=== PATIENT | female | born 1940 | race Caucasian/White ===

== ENCOUNTER 2017-03-08 16:50 | Inpatient (IN) | payer MEDICARE, BC ==
[~2017-03-08] VITALS: Ht 157.4 cm; Wt 79.0 kg
--- NOTE | ~2017-03-08 | PR ---
[place], [place] PROGRESS NOTE [id number] UNIT #: [id number] ROOM: 428 DOCTOR: DORITA AMAYA MD,KIP BIRTHDATE: [birth year] DOS: 03/11/2017 SUBJECTIVE: The patient was noted reduction in symptoms of shortness of breath, cough and stated that she has been feeling much better. Denies symptoms of chest pain or hemoptysis. OBJECTIVE: VITAL SIGNS: For the patient, which was recorded showed the temperature noted as normal. The respiratory rate of the patient recorded as 18, heart rate 80, blood pressure 167/83. The pulse oxygen saturation of the patient was noted at room air or rest of 100% saturation oxygen. HEENT: No acute change. NECK: Supple. CARDIOVASCULAR: S1, S2 is audible. LUNGS: Noted without any wheezing or crackles. ABDOMEN: Soft, nontender. IMPRESSION: 1. The patient with centrilobular nodule, collection in cluster noted in the lower lung. The abnormality noted much marked on the right than the left side. 2. Acute bilateral maxillary sinusitis. PLAN OF TREATMENT: The patient could be discharged home on oral antibiotic, was advised to be followed up in the office for further assessment of the current radiologic abnormalities. Abstinence from tobacco use was recommended. KIP KEVIN MD CM:PNTRANS [id number] KIP AMAYA MD 03/12/17 0047 interface
--- NOTE | ~2017-03-08 | CON ---
[place], [place] REPORT OF CONSULTATION [id number] UNIT #: [id number] ROOM: 428 DOCTOR: DORITA AMAYA MDKIP BIRTHDATE: [birth year] DOS: 03/10/2017 PULMONARY CONSULTATION EVALUATION AND MANAGEMENT REASON FOR CONSULTATION: To assess the patient's current pneumonia. The patient has abnormal respiratory symptoms. Consultation requested by the Hospitalist Services. HISTORY OF PRESENT ILLNESS: This is a 76-year-old white female who has been usually seen by the visiting physician from [place], [place] for wound care. She has developed increased coughing for the last few days that has not been improving. The cough was described to be dry. She was also noticed symptoms of shortness of breath. The symptoms have been present about a couple of weeks. The patient stated that she has taking her medication and not improving with those. The fever was also noted with associated current symptoms intermittently. The patient came into the hospital as she is not improving for further assessment in the Emergency Room. She has been assessed in the Emergency Room and was admitted to the hospital for further care. REVIEW OF SYSTEMS: CONSTITUTIONAL SYMPTOMS: Fatigue and tiredness noted without symptoms of fever or chills. EYES: Denies any burning, redness, or tenderness. EARS, NOSE, THROAT SYMPTOMS: Complaining of pressure in the sinus and some postnasal drainage. Denies any purulent nasal discharge. She denies symptoms of epistaxis or earache. CARDIOVASCULAR SYSTEM: Denies angina pain, edema, pain of the lower extremities. GASTROINTESTINAL SYMPTOMS: Denies dysphagia, nausea, vomiting, diarrhea, abdominal pain, hematemesis, melena, or hematochezia. GENITOURINARY SYMPTOMS: No dysuria, suprapubic pain, or hematuria. CENTRAL NERVOUS SYSTEM: No dizziness, headache, diplopia, syncopal episodes or tingling sensation of the extremity. MUSCULOSKELETAL: No acute joint pain, redness, or tenderness. SKIN: No lesions, rashes or itching. Remaining systems were reviewed. They were noted all negative. PAST MEDICAL HISTORY: 1. Noted with chronic osteoarthritis. 2. Essential hypertension. 3. Type 2 diabetes mellitus. 4. Hypercholesterolemia. SOCIAL HISTORY: The patient stated that she lives at home currently , has 2 children. Nonsmoker lifetime. Denies alcohol use or illicit drug use reported. FAMILY HISTORY: The patient's father as of 80+ years old, unknown complication. Mother is also , at the 80+ years old, unknown medical illnesses. [place], [place] REPORT OF CONSULTATION NAME: MELISSA MA UNIT #: [id number] ROOM: [facility] DOCTOR: DORITA AMAYA MD,KIP BIRTHDATE: [birth year] HOME MEDICATIONS: Noted use of Extra Strength Tylenol, Atacand, Plavix, metformin, and Zocor. DRUG ALLERGIES: REPORTED. 1. BETA BABITA. 2. IVP DYE. 3. AVAPRO. 4. LISINOPRIL. 5. MELOXICAM. 6. COMPAZINE. PHYSICAL EXAMINATION: GENERAL: This is a 76-year-old white Female who has been currently noted to be awake and alert without any acute distress at the time of the assessment. VITAL SIGNS: The patient's height was recorded by the nursing staff on current admission with height of 5 feet 2 inches, weight 174 pounds, BMI 31. The patient's temperature noted 102 degrees Fahrenheit, gradually afebrile status noted in the last 24 hours, the patient with afebrile, respiratory rate 18-20, heart rate 87-101, blood pressure is 172/82-126/99. The intake is 4400 mL over 4100 mL. The pulse oxygen saturation on room air 99% saturation recorded. HEENT: Head was atraumatic. Eyes nonicterus. NECK: Supple. Oral mucosa moist. Moderate decreased posterior pharyngeal space. CARDIOVASCULAR SYSTEM: S1, S2 is audible. LUNGS: The patient was noted with moderate decreased breath sounds. There was no wheezing or crackles heard. ABDOMEN: Soft, nontender with mild to moderate obesity. EXTREMITIES: The patient was noted without any edema, clubbing, or cyanosis. SKIN: Visible skin, no lesions or rashes. MUSCULOSKELETAL: Noted without acute deformities. CENTRAL NERVOUS SYSTEM: The patient was noted intact. Cranial nerves 2-12 intact as well. There were no focal deficits. LABORATORY DATA: The lactic acid on admission 03/08/2017 was 1.6, normal. CBC of the patient on 03/08/2017 normal on admission as well. PT/PTT on 03/08/2017 was normal. CMP 03/08/2017, glucose 133, BUN and creatinine were normal, remaining CMP normal. Influenza A and B, nasal washing antigen negative. CBC done yesterday, the patient remains still normal. Troponin normal yesterday as well. PT/PTT repeated yesterday normal. CMP yesterday, normal BUN and creatinine. Potassium minimally decreased 3.4. Urine culture formation, no bacterial growth, preliminary final culture results are pending. CBC remains normal this morning. BMP this morning, glucose 122. Remaining BMP normal. Blood culture 03/08/2017 showed no bacterial growth. RADIOLOGY DATA: Reviewed for this patient. CT scan of the head for the patient was completed on 03/08/2017 was noted without any acute intracranial abnormality. Bilateral maxillary sinuses were noted. The patient's airflow level greater on the right and the left side with bilateral mild ethmoid sinus disease as well, reported by the radiologist. A chest x-ray that was done for [place], [place] REPORT OF CONSULTATION NAME: [facility]: [id number] UNIT #: [id number] ROOM: [facility] BIR[facility]: [birth year] this patient on 03/08/2017 does not show any acute pulmonary modalities. CT scan of the head that was done yesterday without contrast for the patient was personally reviewed shows prominent hilar mediastinal lymph node noted, short dimension and right hilar lymph node 1.2 cm in the size. The patient was also noted with a small patchy infiltration what appeared to be radicular nodular opacity mostly in the lower lungs, greater in the right and the lower lobe with centrilobular nodule appearance. IMPRESSION: 1. The patient will be currently admitted to the hospital noted with acute bilateral maxillary sinusitis later on noted with current acute progressive respiratory symptom most likely due to aspiration current secretion resulting in acute pneumonia involving the lower lungs bilaterally. 2. The patient with a history of moderate obesity as well. 3. Prominent lymph node. The patient with right hilar area with lymphadenopathy, most likely due to current acute infection. Other differential of the current appearance of bilateral basilar reticular nodular opacities as well as centrilobular nodules with a differential diagnosis would be considered as Mycobacterium avium-intracellulare infection. There was no past history of tobacco use as well. PLAN OF TREATMENT: The patient seemed to be responding to current treatment should be continue current antibiotic for the typical and atypical coverage. Upon discharge for this patient, the patient would be advised about the repeat CT scan of chest to be done as an outpatient to document the resolution of current abnormalities. Sputum for acid fast bacillus will be ordered and bronchoscopy would be considered as an outpatient if the finding remains persistent. Antibiotic treatment for the current sinusitis should be given at least for 2 weeks. Certainly, the patient could be given oral antibiotic upon discharge to complete the current treatment. Other supportive therapy, plan of management and care for the patient is in progress. Additional treatment changes to be made for the patient based on the progression of the illness. Thank you for allowing me to participate in the care of this patient. KIP KEVIN MD CM:CONSTR:REPORT OF CONSULTATION 1607 03/11/17 0259 interface
[~2017-03-08 16:50] MED LIST: ATACAND32 MG PO; CIPRO500 MG PO; HYDROCHLOROTHIA25 MG PO; HYDROCODONE BIT1 T11 PO; HYDRODIURIL25 MG PO; MELOXICAM7.5 MG PO; METFORMIN1000 MG PO; PREDNISONE20 MG PO; VITAMIN D50000 I2 PO; [UNRECOGNIZED DRUG - OTHER] PO
[2017-03-08 17:00] VITALS: BP 184/92
[2017-03-08 17:57] VITALS: BP 210/140
[2017-03-08 18:15] LABS: BASO % 0.6 % (0.0-1.0); EOS # 0.1 10*3/uL (0.0-0.4); EOS % 2.1 % (1.0-4.0); LYMPH # 0.8 10*3/uL (1.3-4.4); LYMPH % 12.7 % (27.0-41.0); MEAN CELL VOLUME 91.1 fl (81.0-99.0); MEAN CORPUSCULAR HGB 28.9 pg (27.0-31.0); MEAN CORPUSCULAR HGB CONC 31.7 g/dl (33.0-37.0); MEAN PLATELET VOLUME 10.1 fl (9.6-12.3); MONO # 0.7 10*3/uL (0.1-1.0); MONO % 9.8 % (3.0-9.0); NEUT # 4.9 10*3/uL (2.3-7.9); NEUT % 74.5 % (47.0-73.0); PLATELET COUNT AUTOMATED 220 10*3/uL (130-400); RED CELL DISTRI WIDTH 13.5 % (0-14.5); WHITE BLOOD COUNT 6.6 10*3/uL (4.8-10.8)
[2017-03-08 18:28] LABS: ACT PARTIAL THROMBO TIME 27.7 SECONDS (20.8-31.5); INTERNATIONAL NORM RATIO 1.1 (2.0-3.5)
[2017-03-08 18:31] LABS: ALBUMIN 3.4 gm/dl (3.1-4.5); ALKALINE PHOSPHATASE 86 U/L (45-117); BUN 17 mg/dl (7-24); CHLORIDE 104 mmol/L (98-107); CREATININE 0.88 mg/dL (0.55-1.02); LIPASE 133 U/L (73-393); POTASSIUM 3.5 mmol/L (3.5-5.1); SGOT/AST 22 IU/L (3-35); SGPT/ALT 19 U/L (12-78); SODIUM 138 mmol/L (136-145); TOTAL PROTEIN 7.2 gm/dL (6.4-8.2)
[2017-03-08 18:32] LABS: TROPONIN I < 0.015 ng/ml (<0.045)
[2017-03-08 18:43] VITALS: BP 176/83
[2017-03-08] MEDS ORDERED: ZOCOR20 MG PO (18:49)
[2017-03-08] MEDS ORDERED: METFORMIN1000 MG PO (18:49)
[2017-03-08] MEDS ORDERED: PLAVIX75 M1 PO (18:49)
[2017-03-08] MEDS ORDERED: ACETAMINOPHEN500 M5 PO (18:51)
[2017-03-08 19:05] LABS: BILIRUBIN 1+ (NEGATIVE); BLOOD NEGATIVE (NEGATIVE); CLARITY CLEAR (CLEAR); COLOR YELLOW (YELLOW); GLUCOSE NEGATIVE (NEGATIVE); KETONE 3+ (NEGATIVE); LEUKO ESTERASE NEGATIVE (NEGATIVE); NITRITE NEGATIVE (NEGATIVE); SPECIFIC GRAVITY 1.025 (1.005-1.030); UROBILINOGEN 0.2 E.U./dl (0.2-1.0)
[2017-03-08 19:14] LABS: BACTERIA 2+; EPITHELIAL CELLS 0-2; MUCOUS 1+; RBC 0-2 rbc/hpf (0-2)
[2017-03-08 19:53] VITALS: BP 154/72
[2017-03-08 21:39] VITALS: BP 156/77
[2017-03-08 23:40] VITALS: BP 143/67
[2017-03-09 03:10] LABS: BASO % 0.7 % (0.0-1.0); EOS # 0.1 10*3/uL (0.0-0.4); HEMATOCRIT 37.7 % (37.0-47.0); HEMOGLOBIN 11.9 g/dl (12.0-16.0); LYMPH # 1.2 10*3/uL (1.3-4.4); LYMPH % 21.5 % (27.0-41.0); MEAN CELL VOLUME 91.5 fl (81.0-99.0); MEAN CORPUSCULAR HGB 28.9 pg (27.0-31.0); MEAN CORPUSCULAR HGB CONC 31.6 g/dl (33.0-37.0); MEAN PLATELET VOLUME 9.7 fl (9.6-12.3); MONO # 0.8 10*3/uL (0.1-1.0); MONO % 15.1 % (3.0-9.0); NEUT # 3.3 10*3/uL (2.3-7.9); NEUT % 60.5 % (47.0-73.0); PLATELET COUNT AUTOMATED 192 10*3/uL (130-400); RED BLOOD COUNT 4.12 10*6/uL (4.10-5.10); RED CELL DISTRI WIDTH 13.5 % (0-14.5); WHITE BLOOD COUNT 5.5 10*3/uL (4.8-10.8)
[2017-03-09 03:21] LABS: ACT PARTIAL THROMBO TIME 28.4 SECONDS (20.8-31.5); INTERNATIONAL NORM RATIO 1.1 (2.0-3.5)
[2017-03-09 03:25] LABS: ALKALINE PHOSPHATASE 73 U/L (45-117); BUN 16 mg/dl (7-24); CHLORIDE 106 mmol/L (98-107); CHOLESTEROL 111 mg/dL (<200); HDL CHOLESTEROL 38 mg/dl (40-60); LDL CHOLESTEROL 47 mg/dL (9-159); PHOSPHOROUS 2.4 mg/dL (2.5-4.9); POTASSIUM 3.4 mmol/L (3.5-5.1); SGOT/AST 16 IU/L (3-35); SGPT/ALT 16 U/L (12-78); SODIUM 141 mmol/L (136-145); TOTAL PROTEIN 6.2 gm/dL (6.4-8.2); TRIGLYCERIDES 132 mg/dl (<150); VLDL CHOLESTEROL 26 mg/dL (6-40)
[2017-03-09 03:26] LABS: FREE T4 1.24 ng/dl (0.76-1.46)
[2017-03-09 07:27] LABS: VITAMIN D, 25-HYDROXY 17.9 ng/mL (30-100)
[2017-03-09 08:00] VITALS: BP 164/64
[2017-03-09 12:00] VITALS: BP 146/99
[2017-03-09 16:00] VITALS: BP 126/99
[2017-03-09 20:00] VITALS: BP 120/71
[2017-03-10] VITALS (9 sets, daily range): BP systolic 138–210; BP diastolic 63–90
[2017-03-10 07:50] LABS: BASO % 0.8 % (0.0-1.0); EOS # 0.2 10*3/uL (0.0-0.4); EOS % 4.6 % (1.0-4.0); HEMATOCRIT 38.5 % (37.0-47.0); HEMOGLOBIN 12.4 g/dl (12.0-16.0); LYMPH # 1.1 10*3/uL (1.3-4.4); LYMPH % 22.8 % (27.0-41.0); MEAN CORPUSCULAR HGB 29.3 pg (27.0-31.0); MEAN CORPUSCULAR HGB CONC 32.2 g/dl (33.0-37.0); MEAN PLATELET VOLUME 9.7 fl (9.6-12.3); MONO # 0.6 10*3/uL (0.1-1.0); MONO % 12.8 % (3.0-9.0); NEUT # 2.8 10*3/uL (2.3-7.9); NEUT % 58.6 % (47.0-73.0); PLATELET COUNT AUTOMATED 199 10*3/uL (130-400); RED BLOOD COUNT 4.23 10*6/uL (4.10-5.10); RED CELL DISTRI WIDTH 13.7 % (0-14.5); WHITE BLOOD COUNT 4.8 10*3/uL (4.8-10.8)
[2017-03-10 08:14] LABS: BUN 9 mg/dl (7-24); CHLORIDE 107 mmol/L (98-107); CREATININE 0.59 mg/dL (0.55-1.02); PHOSPHOROUS 2.1 mg/dL (2.5-4.9); POTASSIUM 3.6 mmol/L (3.5-5.1); SODIUM 142 mmol/L (136-145)
[2017-03-11] VITALS: BP 147/73
[2017-03-11 08:00] VITALS: BP 167/83
[2017-03-11 12:00] VITALS: BP 153/102
[2017-03-11] MEDS ORDERED: VITAMIN D-32000 UNI1 PO (13:13)
[2017-03-11] MEDS ORDERED: HYDR12.5C PO (13:13)
[2017-03-11] MEDS ORDERED: VIBRA-TAB100 MG PO (13:13)
[2017-03-11] MEDS ORDERED: BENZONATATE100 M1 PO (13:13)
[2017-03-12 16:07] LABS: LEGIONELLA URINARY ANTIGEN Negative (Negative)
== END 2017-03-11 16:03 | disposition home or self-care (01) | DRG 871 ==
LOC: ED 16:50 → EDHOLD 22:17 → 4E 22:17
PROVIDERS: Emergency Medicine; Hospitalist; Internal Medicine Nephrology
DX: A41.9 Sepsis, unspecified organism (principal); J18.9 Pneumonia, unspecified organism; E44.0 Moderate protein-calorie malnutrition; E11.65 Type 2 diabetes mellitus with hyperglycemia; I11.0 Hypertensive heart disease with heart failure; E67.8 Other specified hyperalimentation; I50.32 Chronic diastolic (congestive) heart failure; D64.9 Anemia, unspecified; J01.00 Acute maxillary sinusitis, unspecified; J32.0 Chronic maxillary sinusitis; I16.0 Hypertensive urgency; D72.810 Lymphocytopenia; D72.821 Monocytosis (symptomatic); E87.6 Hypokalemia; E55.9 Vitamin D deficiency, unspecified; E66.09 Other obesity due to excess calories; R26.2 Difficulty in walking, not elsewhere classified; E78.5 Hyperlipidemia, unspecified; M54.5 Low back pain; G89.29 Other chronic pain; M19.90 Unspecified osteoarthritis, unspecified site; R91.1 Solitary pulmonary nodule; E78.00 Pure hypercholesterolemia, unspecified; Z86.73 Personal history of transient ischemic attack (TIA), and cerebral infarction without residual deficits; Z88.8 Allergy status to other drugs, medicaments and biological substances; Z91.041 Radiographic dye allergy status; Z79.899 Other long term (current) drug therapy; Z68.31 Body mass index [BMI] 31.0-31.9, adult; Z72.0 Tobacco use; Z79.84 Long term (current) use of oral hypoglycemic drugs

== ENCOUNTER 2017-03-28 12:13 | Emergency (ER) | payer MEDICARE, BC ==
[~2017-03-28] VITALS: Wt 68.0 kg
[~2017-03-28 12:13] MED LIST changes: +ACETAMINOPHEN500 M5 PO; +BENZONATATE100 M1 PO; +HYDR12.5C PO; +PLAVIX75 M1 PO; +VIBRA-TAB100 MG PO; +VITAMIN D-32000 UNI1 PO; +ZOCOR20 MG PO
[2017-03-28 13:05] LABS: BASO # 0.1 10*3/uL (0.0-0.1); BASO % 0.6 % (0.0-1.0); EOS # 0.1 10*3/uL (0.0-0.4); EOS % 1.1 % (1.0-4.0); HEMATOCRIT 43.7 % (37.0-47.0); HEMOGLOBIN 13.8 g/dl (12.0-16.0); LYMPH # 1.5 10*3/uL (1.3-4.4); LYMPH % 19.2 % (27.0-41.0); MEAN CELL VOLUME 90.9 fl (81.0-99.0); MEAN CORPUSCULAR HGB 28.7 pg (27.0-31.0); MEAN CORPUSCULAR HGB CONC 31.6 g/dl (33.0-37.0); MEAN PLATELET VOLUME 10.6 fl (9.6-12.3); MONO # 0.4 10*3/uL (0.1-1.0); MONO % 5.6 % (3.0-9.0); NEUT # 5.8 10*3/uL (2.3-7.9); NEUT % 73.2 % (47.0-73.0); PLATELET COUNT AUTOMATED 235 10*3/uL (130-400); RED BLOOD COUNT 4.81 10*6/uL (4.10-5.10); RED CELL DISTRI WIDTH 13.8 % (0-14.5); WHITE BLOOD COUNT 7.9 10*3/uL (4.8-10.8)
[2017-03-28 13:11] LABS: BILIRUBIN 1+ (NEGATIVE); BLOOD NEGATIVE (NEGATIVE); CLARITY CLOUDY (CLEAR); COLOR YELLOW (YELLOW); GLUCOSE NEGATIVE (NEGATIVE); KETONE 1+ (NEGATIVE); LEUKO ESTERASE NEGATIVE (NEGATIVE); NITRITE NEGATIVE (NEGATIVE); PH 5.5 (5.0-9.0); SPECIFIC GRAVITY >= 1.030 (1.005-1.030); UROBILINOGEN 0.2 E.U./dl (0.2-1.0)
[2017-03-28 13:14] LABS: ACT PARTIAL THROMBO TIME 27.1 SECONDS (20.8-31.5); INTERNATIONAL NORM RATIO 1.1 (2.0-3.5)
[2017-03-28 13:20] LABS: ALBUMIN 3.6 gm/dl (3.1-4.5); ALKALINE PHOSPHATASE 85 U/L (45-117); BUN 14 mg/dl (7-24); CHLORIDE 107 mmol/L (98-107); CREATININE 0.95 mg/dL (0.55-1.02); LIPASE 143 U/L (73-393); POTASSIUM 3.5 mmol/L (3.5-5.1); SGOT/AST 17 IU/L (3-35); SGPT/ALT 15 U/L (12-78); SODIUM 142 mmol/L (136-145); TOTAL PROTEIN 6.9 gm/dL (6.4-8.2)
[2017-03-28 13:23] LABS: HYALINE CAST 0-2; MUCOUS 1+; WBC 0-2 wbc/hpf (0-5)
[2017-03-28 13:23] LABS: TROPONIN I < 0.015 ng/ml (<0.045)
[2017-03-28 18:19] VITALS: BP 130/80
== END 2017-03-28 15:42 | disposition short-term general hospital (02) ==
LOC: ED 12:13
PROVIDERS: Emergency Medicine
DX: I16.0 Hypertensive urgency (principal); R55 Syncope and collapse; I11.0 Hypertensive heart disease with heart failure; I50.9 Heart failure, unspecified; E78.5 Hyperlipidemia, unspecified; R73.9 Hyperglycemia, unspecified; E87.6 Hypokalemia; Z91.041 Radiographic dye allergy status; Z88.8 Allergy status to other drugs, medicaments and biological substances; Z79.84 Long term (current) use of oral hypoglycemic drugs; Z79.899 Other long term (current) drug therapy

== ENCOUNTER 2017-06-02 22:57 | Inpatient (IN) | payer MEDICARE, BC ==
[~2017-06-02] VITALS: Ht 155 cm; Wt 78.0 kg
--- NOTE | ~2017-06-02 | PR ---
[place], [place] PROGRESS NOTE NAME: MELISSA MA [facility] #: [id number] UNIT #: [id number] ROOM: 420 DOCTOR: ROMIE CHEEK MD BIRTHDATE: [birth year] DOS: 06/04/2017 CARDIOLOGY PROGRESS NOTE SUBJECTIVE: The patient was seen today at her bedside in the intensive care unit. No family members were available. The patient is quite agitated at this time. She states that the nursing staff tried to get her out of bed to go to the bedside commode and she became very lightheaded and almost passed out. She became very agitated after that. She stated that she was afraid that she was going to have another stroke. Records were obtained from [facility] where she was hospitalized on 03/28/2017. She was transferred for evaluation of possible stroke. At the [facility] she was evaluated mostly for syncope. She stated that loss of consciousness was her biggest complaint. The records reference a CAT scan, which showed no acute findings. An echocardiogram was done and showed normal left ventricular systolic function with stage II diastolic dysfunction. There is no mention of a heart catheterization, aneurysm or stent, even though the patient states that she had 2 stents placed, was told that she had an aneurysm and was treated for a stroke. PHYSICAL EXAMINATION: VITAL SIGNS: Today her pulse is between 75 and 100 and regular, blood pressure is 151/91. She is afebrile. NECK: Supple. She has no jugular distention. Carotids are full. LUNGS: Respirations are unlabored. Her chest is clear. She has decreased breath sounds at the bases. HEART: Has a regular rhythm with an S4 gallop. ABDOMEN: Benign. EXTREMITIES: Showed trace edema. LABORATORY DATA: She did have an echocardiogram done yesterday. I reviewed the images and they showed normal left ventricular size with mild concentric left ventricular hypertrophy, ejection fraction was between 65 and 70% and she did have a stage 1 diastolic dysfunction pattern. She had aortic sclerosis, but no stenosis or significant insufficiency. She had minimal mitral insufficiency and no stenosis. Right ventricular systolic pressures were normal. 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 The IVC was normal in size. IMPRESSION: 1. Hypertensive urgency. 2. Abnormal electrocardiogram and elevated troponins consistent with acute non-ST segment elevation myocardial infarction. 3. Neurologic symptoms suggestive of recent stroke or transient ischemic attack. 4. Essential hypertension. 5. Type 2 diabetes. 6. Hyperlipidemia. 7. History of stroke or transient ischemic attack. However, records are not [place], [place] PROGRESS NOTE [facility]: [id number] UNIT #: [id number] ROOM: 420 DOCTOR: ROMIE CHEEK MD BIRTHDATE: [birth year] available to document this very well. PLAN: We will continue to adjust her medications to better control her blood pressure. My goal would be to have her blood pressure about 150 systolic while we are evaluating her for possible acute cerebral insufficiency. Since her chart still indicates an allergy to BETA BLOCKERS, we will withhold them, but we will continue angiotensin receptor blockers, hydralazine and diuretics. I thank the hospitalist physicians for asking our advice regarding her care. ROMIE CHEEK MD CM:PNTRANS [id number] ROMIE CHEEK MD 06/06/17 0823 interface
--- NOTE | ~2017-06-02 | PR ---
[place], [place] PROGRESS NOTE NAME: MELISSA MA [facility] #: [id number] UNIT #: [id number] ROOM: [facility] DOCTOR: ROMIE CHEEK MD BIRTHDATE: [birth year] DOS: 06/05/2017 SUBJECTIVE: The patient was seen at her bedside in the intensive care unit today 06/05/2017 for followup of her recent hypertensive emergency and non-ST segment elevation myocardial infarction. The patient denies any chest pain. She is resting comfortably in bed. She states that she was unable to sleep last night, but was able to nap this morning. She states she is breathing easily. PHYSICAL EXAMINATION: VITAL SIGNS: Her pulse is 77 and regular, blood pressure is 123/64. She is afebrile. She weighs 78.0 kilograms, and has a body mass index 32.5. NECK: Supple. She has no jugular distention. Carotids are full. LUNGS: Respirations are unlabored. Her chest is clear anteriorly and laterally. HEART: Has a regular rhythm with an S4 gallop. ABDOMEN: Benign. EXTREMITIES: Showed no edema. The patient's echocardiogram did show normal left ventricular size and segmental wall motion with mild concentric left ventricular hypertrophy, ejection fraction was 65-70% with stage I relaxation abnormalities. There was aortic sclerosis, but no stenosis. There was marked mitral annular calcification, but no significant mitral stenosis or insufficiency. She does have dilation of the ascending thoracic aorta at 4.0 cm. IMPRESSION: 1. Hypertensive emergency. 2. Acute non-ST elevation myocardial infarction. 3. Possible recent stroke or transient ischemic attack. 4. Essential hypertension. 5. Type 2 diabetes mellitus. 6. Hyperlipidemia. 7. Ascending thoracic aortic dilation. PLAN: I would like to treat her with beta blockers, but this is listed as an allergy. The patient cannot tell me if or how she was allergic to beta blockers and her was unaware as well. For now, her blood pressure is under control and we will continue her current medications. Since she had a recent episode of non-ST elevation VA, we will treat her with dual antiplatelet therapy and statins. I think we can stop her heparin drip at this point and place her on DVT prophylaxis, doses of Lovenox. She can be moved out of the intensive care unit. As she becomes more ambulatory, we can consider a risk stratifying stress test, but as long as she is feeling well and her vital signs are controlled, I probably would just treat her medically at this point. I thank the hospitalist physicians for asking our advice regarding her care. [place], [place] PROGRESS NOTE NAME: MELISSA MA UNIT #: [id number] ROOM: [facility] DOCTOR: ROMIE CHEEK MD BIRTHDATE: [birth year] ROMIE CHEEK MD CM:PNTRANS [id number] ROMIE CHEEK MD 06/05/17 1043 interface
--- NOTE | ~2017-06-02 | CON ---
[place], [place] REPORT OF CONSULTATION NAME: MELISSA MA UNIT #: [id number] ROOM: 420 DOCTOR: PATRIA COBURN MD BIRTHDATE: [birth year] DOS: 06/06/2017 CHIEF COMPLAINT: "I just want to get my 2 canes and walk on out of here." HISTORY OF PRESENT ILLNESS: This is a 76-year-old white female who was admitted to the medical floor at [facility] due to intermittent dizziness. The patient reports that as long as she is lying flat, she is okay. When she starts moving about, she does notice that the dizziness gets worse. From a psychiatric standpoint, she denies any issues. She states that she is not depressed and states "I have a very good life and I just want to go back to it." She reports that at time she does have trouble sleeping that has been more so now that she is in the hospital, but at home, she endorses she sleeps through the night. She does not experience any symptoms of anergia, anhedonia, hopeless, helpless feelings. She denies suicidal thoughts, homicidal thoughts. She likewise denies anxiety and states that her only anxiety is because she wants to go home, otherwise she feels very comfortable. She notes no arelis or hypomania and also denies any psychotic symptomatology. MENTAL STATUS: She is alert and oriented to person, place and time. Mood does seem to be euthymic. Affect is appropriate. She was able to engage readily in conversation with me and even joke with me. There was no symptom suggestive of hypomania arelis or psychosis. Memory for the most part is fully intact. DIAGNOSES: Adjustment disorder with depressed mood. PLAN: At this point, I see no reason for any medication intervention. At this point when you feel that she is ready to go medically, I would say that she does not even need psychiatric followup. PATRIA COBURN MD CM:CONSTR:REPORT OF CONSULTATION 0941 06/06/17 0956 interface
--- NOTE | ~2017-06-02 | PR ---
[place], [place] PROGRESS NOTE NAME: MELISSA MA UNIT #: [id number] ROOM: 420 DOCTOR: ROMIE CHEEK MD BIRTHDATE: [birth year] DOS: 06/06/2017 SUBJECTIVE: The patient was seen at her bedside today, 06/06/2017, for followup of her recent hypertensive emergency and non-ST segment elevation myocardial infarction. The patient is very agitated at this time. She is demanding discharge. She told me that she did not want to answer any questions and did not want to talk to me. I explained to her that we did not feel that it was safe for her to be discharged since she has not been out of bed and when sat up she complains of unsteadiness. She states that she would do fine at home. OBJECTIVE: GENERAL: On exam, she is lying in bed and appears comfortable. As noted, she is quite agitated. VITAL SIGNS: Pulse is 100 and regular, blood pressure is 117/70. She is afebrile. She weighs 78.0 kilograms and his body mass index of 32.5. NECK: Supple. She has no jugular distention. Carotids are full. LUNGS: Respirations are unlabored. EXTREMITIES: Showed no edema. IMPRESSION: 1. Hypertensive emergency. 2. Acute non-ST elevation myocardial infarction. 3. Probable recent stroke or transient ischemic attack. 4. Essential hypertension. 5. Type 2 diabetes mellitus. 6. Hyperlipidemia. 7. Ascending thoracic aortic dilation. PLAN: The patient does not appear to me to be safe for discharge. I think that her blood pressure will require further control. I also think that she should have physical therapy to ensure that she is stable out of bed. Currently, she is refusing physical therapy, etc. From a cardiac perspective, it might be appropriate to have her do a stress test for risk stratification, but I do not think that she is willing to consider any further evaluation. We will continue to see her as needed and I thank the hospitalist physicians for asking our advice regarding her care. In the meantime, however, we will increase her angiotensin receptor venkat and add a diuretic for better control of her blood pressure. [place], [place] PROGRESS NOTE NAME: MELISSA MA [facility] #: [id number] UNIT #: [id number] ROOM: 420 DOCTOR: ROMIE CHEEK MD BIRTHDATE: [birth year] ROMIE CHEEK MD CM:PNTRANS [id number] ROMIE CHEEK MD 06/06/17 174 interface
--- NOTE | ~2017-06-02 | CON ---
[place], [place] REPORT OF CONSULTATION NAME: [id number] UN[facility] #: [id number] ROOM: [facility] DOCTOR: ROMIE CHEEK MD BIRTHDATE: [birth year] DOS: 06/03/2017 REASON FOR CONSULTATION: Elevated blood pressure, elevated troponin, and EKG changes consistent with ischemia. HISTORY OF PRESENT ILLNESS: The patient is a 76-year-old woman who has multiple medical problems. She is a difficult historian, but she does state that she has a long history of hypertension and gait difficulties. She states that at home, she walks with two canes. She believes that she was reasonably well until February of this year when she started having problems with left arm pain and weakness. She states that she was seen at [facility] and then sent to [facility]. Details of that are not yet available. She states that while she was at [facility] she received stents in her heart and was told that she had an aneurysm in her head. She was subsequently admitted to the [facility] with sinusitis and hypertensive urgency. Medications were adjusted and she felt better. She states that yesterday when she tried to get up, she felt dizzy and could not move her left side. This improved, but last evening, she could not talk, walk or move, so her family brought her to the emergency room. In the emergency room, she was hypertensive. Her initial troponin was normal, but subsequent troponin levels have risen in a pattern suggesting acute myocardial injury. Coincidental with this, she did have flat ST segment depressions in the lateral leads, which has subsequently improved. She denies chest pain throughout. Currently, her blood pressure remains elevated, but is better than it was on admission. She is breathing easily and moving all of her extremities. PAST MEDICAL HISTORY: Includes: 1. Hypertension. 2. Chronic diastolic heart failure. 3. Chronic kidney disease. 4. History of stroke or TIA (not well documented at present). 5. Hyperlipidemia. 6. Obesity. 7. Type 2 diabetes mellitus. 8. The chart indicates that she has had an adrenal adenoma found on a CT of her pelvis in January 2013. 9. The patient states that she did have an aneurysm in her head, diagnosed at the [facility] earlier this year. Records are pending. 10. History of probable catheterization and stent earlier this year, records pending. MEDICATIONS: Prior to admission acetaminophen, benzonatate, candesartan 32 mg daily, cholecalciferol 2000 units daily, clopidogrel 75 mg daily, hydrochlorothiazide 12.5 mg daily, metformin 1000 mg daily and simvastatin 20 mg at bedtime. ALLERGIES: The patient is very unclear on her allergies. She states that the only thing she is sure she is allergic to is ATACAND; however, she is on candesartan at this time and apparently tolerating it well. The chart indicates [place], [place] REPORT OF CONSULTATION NAME: MELISSA MA UNIT #: [id number] ROOM: [facility] DOCTOR: ROMIE CHEEK MD BIRTHDATE: [birth year] that she is allergic to BETA BLOCKERS, LISINOPRIL, MELOXICAM, IRBESARTAN, PROCHLORPERAZINE and IVP DYE. The patient cannot confirm any of these and the details of the allergies are not currently available. FAMILY HISTORY: According to the records, the patient's father in his 80s from unknown causes. Her mother also in her 80s of unknown causes. REVIEW OF SYSTEMS: The patient denies diplopia. She did state that she could not see earlier yesterday for reasons that are not clear. She stated that she had left-sided weakness yesterday. She states that her vision got dim. She denied nausea or vomiting. She denied chest pain. She has had some breathlessness over the last several months. She denied hemoptysis or hematemesis. She states that she feels like she has to move her bowels, but she denies blood in her stools or urine. She denies fevers or chills. She denies dysuria. She states that her legs have been swollen. The remainder of her review of systems is negative except as noted above. SOCIAL HISTORY: The patient is and lives with her . She denies use of tobacco or alcohol and denies any illicit drugs. PHYSICAL EXAMINATION: GENERAL: The patient is an elderly white female who looks older than her stated age. VITAL SIGNS: Pulse is 82 and regular, blood pressure is 162/84. She is afebrile. HEENT: Normocephalic and atraumatic. Extraocular muscles are intact. Sclerae are clear. Pupils are equal, round and react to light. The oral mucosa is moist. Tongue is midline. NECK: Supple. She has no jugular distention. Carotids are full and I heard no bruits. She had no neck or supraclavicular masses and no thyromegaly. Respirations were unlabored. CHEST: Clear to auscultation and percussion. She had no presacral edema. CARDIOVASCULAR: Her heart had a regular rhythm. She had a fourth heart sound, but no third heart sound or murmur. The PMI was not displaced. There is no precordial heave, lift or thrill. ABDOMEN: Soft and normally active. I heard no bruits and there was no obvious mass. EXTREMITIES: Showed trace edema. Her ankles are wrapped. Pedal pulses are palpable in the feet. LABORATORY DATA: I reviewed her chest x-ray. It shows a normal cardiac silhouette. There are no infiltrates or evidence for heart failure. I reviewed several EKGs. Her EKG on admission was normal, but subsequently became abnormal with flat to downsloping ST segment depression in the inferior and lateral leads, especially leads 1 and V4 through V6. Subsequent EKGs show that this has resolved back to baseline. Troponin levels are elevated as noted above. They were normal on admission, but milly as high as 0.201 consistent with an acute myocardial injury. [place], [place] REPORT OF CONSULTATION NAME: MELISSA MA UNIT #: [id number] ROOM: [facility] DOCTOR: ROMIE CHEEK MD BIRTHDATE: [birth year] Sodium is 142, potassium 3.8, chloride 107, CO2 23, BUN 18, creatinine 0.94, hemoglobin A1c 5.9. IMPRESSION: 1. Hypertensive urgency. 2. Abnormal EKG and elevated troponin consistent with acute non-ST segment elevation myocardial infarction. 3. Neurologic symptoms suggestive of stroke. 4. Essential hypertension. 5. Type 2 diabetes mellitus. 6. Hyperlipidemia. 7. History of stroke or transient ischemic attack. PLAN: It is critically important that we obtain old records. In the meantime, we should try to correct her blood pressure at least to 140 systolic. To that end, we can use angiotensin receptor blockers for the time being along with nitrates, low dose beta blockers and hydralazine. If she were to develop tachycardia, we could add diltiazem. I would prefer to use beta blockers but until we clarify her allergies this may be problematic. Depending on the results of her previous catheterization, we may consider further testing including eventual pharmacologic cardiac imaging, but for now, I think that empiric therapy is appropriate. I thank the hospitalist physicians for asking our advice regarding her care. ROMIE CHEEK MD CM:CONSTR:REPORT OF CONSULTATION 0902 06/03/17 1233 interface
[2017-06-02 23:01] VITALS: BP 185/121
[2017-06-02 23:05] VITALS: BP 200/98
[2017-06-02 23:23] LABS: BILIRUBIN NEGATIVE (NEGATIVE); BLOOD NEGATIVE (NEGATIVE); CLARITY CLEAR (CLEAR); COLOR YELLOW (YELLOW); GLUCOSE NEGATIVE (NEGATIVE); KETONE NEGATIVE (NEGATIVE); LEUKO ESTERASE NEGATIVE (NEGATIVE); NITRITE NEGATIVE (NEGATIVE); PH 6.5 (5.0-9.0); UROBILINOGEN 0.2 E.U./dl (0.2-1.0)
[2017-06-02 23:28] VITALS: BP 208/108
[2017-06-02 23:28] LABS: BASO # 0.1 10*3/uL (0.0-0.1); BASO % 0.9 % (0.0-1.0); EOS # 0.2 10*3/uL (0.0-0.4); EOS % 3.4 % (1.0-4.0); HEMATOCRIT 38.2 % (37.0-47.0); HEMOGLOBIN 11.7 g/dl (12.0-16.0); LYMPH # 1.7 10*3/uL (1.3-4.4); LYMPH % 24.9 % (27.0-41.0); MEAN CELL VOLUME 93.2 fl (81.0-99.0); MEAN CORPUSCULAR HGB 28.5 pg (27.0-31.0); MEAN CORPUSCULAR HGB CONC 30.6 g/dl (33.0-37.0); MEAN PLATELET VOLUME 10.2 fl (9.6-12.3); MONO # 0.5 10*3/uL (0.1-1.0); MONO % 7.6 % (3.0-9.0); NEUT # 4.3 10*3/uL (2.3-7.9); NEUT % 62.8 % (47.0-73.0); PLATELET COUNT AUTOMATED 237 10*3/uL (130-400); WHITE BLOOD COUNT 6.9 10*3/uL (4.8-10.8)
[2017-06-02 23:29] LABS: WBC 0-2 wbc/hpf (0-5)
[2017-06-02 23:32] LABS: ACT PARTIAL THROMBO TIME 27.5 SECONDS (20.8-31.5); INTERNATIONAL NORM RATIO 0.9 (2.0-3.5)
[2017-06-02 23:39] LABS: ALBUMIN 3.7 gm/dl (3.1-4.5); ALKALINE PHOSPHATASE 87 U/L (45-117); BUN 18 mg/dl (7-24); CHLORIDE 105 mmol/L (98-107); CREATININE 0.98 mg/dL (0.55-1.02); POTASSIUM 3.6 mmol/L (3.5-5.1); SGOT/AST 22 IU/L (3-35); SGPT/ALT 23 U/L (12-78); SODIUM 140 mmol/L (136-145); TOTAL PROTEIN 6.8 gm/dL (6.4-8.2)
[2017-06-02 23:45] LABS: TROPONIN I < 0.015 ng/ml (<0.045)
[2017-06-02 23:48] VITALS: BP 212/118
[2017-06-03] VITALS (9 sets, daily range): BP systolic 148–169; BP diastolic 66–85
[2017-06-03 06:00] LABS: BASO % 0.4 % (0.0-1.0); EOS % 0.4 % (1.0-4.0); HEMATOCRIT 35.9 % (37.0-47.0); HEMOGLOBIN 11.1 g/dl (12.0-16.0); LYMPH # 1.1 10*3/uL (1.3-4.4); LYMPH % 10.5 % (27.0-41.0); MEAN CELL VOLUME 92.5 fl (81.0-99.0); MEAN CORPUSCULAR HGB 28.6 pg (27.0-31.0); MEAN CORPUSCULAR HGB CONC 30.9 g/dl (33.0-37.0); MEAN PLATELET VOLUME 10.8 fl (9.6-12.3); MONO # 0.5 10*3/uL (0.1-1.0); MONO % 5.3 % (3.0-9.0); NEUT # 8.3 10*3/uL (2.3-7.9); NEUT % 82.8 % (47.0-73.0); PLATELET COUNT AUTOMATED 240 10*3/uL (130-400); RED BLOOD COUNT 3.88 10*6/uL (4.10-5.10); RED CELL DISTRI WIDTH 14.1 % (0-14.5)
[2017-06-03 06:09] LABS: ALBUMIN 3.2 gm/dl (3.1-4.5); ALKALINE PHOSPHATASE 86 U/L (45-117); BUN 18 mg/dl (7-24); CHLORIDE 107 mmol/L (98-107); CHOLESTEROL 146 mg/dL (<200); CREATININE 0.94 mg/dL (0.55-1.02); HDL CHOLESTEROL 46 mg/dl (40-60); LDL CHOLESTEROL 83 mg/dL (9-159); PHOSPHOROUS 2.5 mg/dL (2.5-4.9); POTASSIUM 3.8 mmol/L (3.5-5.1); SGOT/AST 21 IU/L (3-35); SGPT/ALT 23 U/L (12-78); SODIUM 142 mmol/L (136-145); TOTAL PROTEIN 6.3 gm/dL (6.4-8.2); TRIGLYCERIDES 83 mg/dl (<150); VLDL CHOLESTEROL 17 mg/dL (6-40)
[2017-06-03 09:04] LABS: VITAMIN D, 25-HYDROXY 23.5 ng/mL (30-100)
[2017-06-04] VITALS (7 sets, daily range): BP systolic 134–187; BP diastolic 66–100
[2017-06-04 06:33] LABS: BUN 11 mg/dl (7-24); CHLORIDE 110 mmol/L (98-107); CREATININE 0.71 mg/dL (0.55-1.02); POTASSIUM 3.8 mmol/L (3.5-5.1); SODIUM 144 mmol/L (136-145)
[2017-06-04] MEDS ORDERED: ATACAND PO (11:04)
[2017-06-04 14:05] LABS: URINE CHLORIDE, RANDOM 113 mmol/L; URINE CREATININE RANDOM < 13.00 mg/dL
[2017-06-05] VITALS: BP 139/61
[2017-06-05 04:00] VITALS: BP 137/71
[2017-06-05 05:40] LABS: BUN 11 mg/dl (7-24); CHLORIDE 110 mmol/L (98-107); CREATININE 0.69 mg/dL (0.55-1.02); POTASSIUM 3.4 mmol/L (3.5-5.1); SODIUM 144 mmol/L (136-145)
[2017-06-05 08:00] VITALS: BP 123/64
[2017-06-05] MEDS ORDERED: Lovenox40 MG/0.4 SC (10:10)
[2017-06-05 11:22] VITALS: BP 167/67
[2017-06-05 16:00] VITALS: BP 120/42
[2017-06-05 20:00] VITALS: BP 172/60
[2017-06-06] VITALS: BP 148/69
[2017-06-06 06:51] LABS: BASO % 0.4 % (0.0-1.0); EOS # 0.2 10*3/uL (0.0-0.4); HEMATOCRIT 28.9 % (37.0-47.0); HEMOGLOBIN 8.8 g/dl (12.0-16.0); LYMPH # 1.4 10*3/uL (1.3-4.4); LYMPH % 19.5 % (27.0-41.0); MEAN CELL VOLUME 94.1 fl (81.0-99.0); MEAN CORPUSCULAR HGB 28.7 pg (27.0-31.0); MEAN CORPUSCULAR HGB CONC 30.4 g/dl (33.0-37.0); MEAN PLATELET VOLUME 10.5 fl (9.6-12.3); MONO # 0.7 10*3/uL (0.1-1.0); NEUT % 67.8 % (47.0-73.0); PLATELET COUNT AUTOMATED 221 10*3/uL (130-400); RED BLOOD COUNT 3.07 10*6/uL (4.10-5.10); RED CELL DISTRI WIDTH 14.3 % (0-14.5); WHITE BLOOD COUNT 7.4 10*3/uL (4.8-10.8)
[2017-06-06 08:00] VITALS: BP 164/72
[2017-06-06 12:00] VITALS: BP 170/70
[2017-06-06 16:00] VITALS: BP 146/72
[2017-06-06 20:33] VITALS: BP 187/79
[2017-06-07] VITALS: BP 161/83
[2017-06-07 06:03] LABS: BUN 11 mg/dl (7-24); CHLORIDE 107 mmol/L (98-107); POTASSIUM 3.4 mmol/L (3.5-5.1); SODIUM 141 mmol/L (136-145)
[2017-06-07 06:08] LABS: BASO # 0.1 10*3/uL (0.0-0.1); BASO % 0.5 % (0.0-1.0); EOS # 0.1 10*3/uL (0.0-0.4); EOS % 1.2 % (1.0-4.0); HEMATOCRIT 32.8 % (37.0-47.0); LYMPH # 1.4 10*3/uL (1.3-4.4); LYMPH % 14.3 % (27.0-41.0); MEAN CELL VOLUME 93.7 fl (81.0-99.0); MEAN CORPUSCULAR HGB 28.6 pg (27.0-31.0); MEAN CORPUSCULAR HGB CONC 30.5 g/dl (33.0-37.0); MEAN PLATELET VOLUME 10.7 fl (9.6-12.3); MONO % 9.7 % (3.0-9.0); NEUT # 7.4 10*3/uL (2.3-7.9); PLATELET COUNT AUTOMATED 240 10*3/uL (130-400); RED CELL DISTRI WIDTH 14.4 % (0-14.5)
[2017-06-07 08:00] VITALS: BP 136/76
[2017-06-07 12:00] VITALS: BP 132/50
[2017-06-07] MEDS ORDERED: LOSARTAN POTASS50 M1 PO (13:02)
[2017-06-07] MEDS ORDERED: K-TAB10 MEQ PO (13:02)
[2017-06-07] MEDS ORDERED: LASIX20 MG PO (13:02)
[2017-06-07] MEDS ORDERED: ASPIRIN ADULT L81 M2 PO (13:02)
[2017-06-07] MEDS ORDERED: VITAMIN D-32000 UNI1 PO (13:02)
[2017-06-07] MEDS ORDERED: VISTARIL25 MG PO (13:05)
== END 2017-06-07 14:13 | disposition home or self-care (01) | DRG 281 ==
LOC: ED 22:57 → 4E 06-03 01:17 → ICCU 06-03 01:17 → 4E 06-05 21:05
PROVIDERS: Emergency Medicine; Internal Medicine; Internal Medicine Cardiovascular Disease; Student in an Organized Health Care Education/Training Program
DX: I21.4 Non-ST elevation (NSTEMI) myocardial infarction (principal); E87.2 Acidosis; E44.0 Moderate protein-calorie malnutrition; E11.22 Type 2 diabetes mellitus with diabetic chronic kidney disease; E11.65 Type 2 diabetes mellitus with hyperglycemia; I71.2 Thoracic aortic aneurysm, without rupture; S70.11XA Contusion of right thigh, initial encounter; I16.1 Hypertensive emergency; I13.0 Hypertensive heart and chronic kidney disease with heart failure and stage 1 through stage 4 chronic kidney disease, or unspecified chronic kidney disease; I50.32 Chronic diastolic (congestive) heart failure; D35.01 Benign neoplasm of right adrenal gland; D64.9 Anemia, unspecified; E87.8 Other disorders of electrolyte and fluid balance, not elsewhere classified; S70.12XA Contusion of left thigh, initial encounter; I20.9 Angina pectoris, unspecified; N18.3 Chronic kidney disease, stage 3 (moderate); R94.31 Abnormal electrocardiogram [ECG] [EKG]; L56.5 Disseminated superficial actinic porokeratosis (DSAP); H61.23 Impacted cerumen, bilateral; F41.9 Anxiety disorder, unspecified; E78.5 Hyperlipidemia, unspecified; E66.09 Other obesity due to excess calories; G89.29 Other chronic pain; E55.9 Vitamin D deficiency, unspecified; R26.2 Difficulty in walking, not elsewhere classified; E87.6 Hypokalemia; M54.40 Lumbago with sciatica, unspecified side; F43.21 Adjustment disorder with depressed mood; Z86.73 Personal history of transient ischemic attack (TIA), and cerebral infarction without residual deficits; Z68.32 Body mass index [BMI] 32.0-32.9, adult; Z79.899 Other long term (current) drug therapy; Z95.5 Presence of coronary angioplasty implant and graft; Z88.8 Allergy status to other drugs, medicaments and biological substances; Z91.041 Radiographic dye allergy status; W18.39XA Other fall on same level, initial encounter; Y93.89 Activity, other specified; Y92.89 Other specified places as the place of occurrence of the external cause; Y99.8 Other external cause status

== ENCOUNTER 2017-06-29 13:27 | Inpatient (IN) | payer MEDICARE, BC ==
[~2017-06-29] VITALS: Ht 154.9 cm; Wt 71.0 kg
--- NOTE | ~2017-06-29 | CON ---
[place], [place] REPORT OF CONSULTATION NAME: MELISSA MA UNIT #: [id number] ROOM: 411 DOCTOR: PATRIA COBURN MD BIRTHDATE: [birth year] DOS: 07/01/2017 CHIEF COMPLAINT: "Get out of here, get the hell out of here, this whole place lies, all you do is tell a pack of lies." SUMMARY OF THE VISIT: The patient is a 76-year-old white female who was admitted due to increased dizziness. Since her admission though to [facility], the patient has had a significant alteration in mental status. The patient has become increasingly irritable and very paranoid. She believes that her has been taking money away from them and must have owed people the money. She believes that the entire hospital is in cahoots and is plotting against her and is trying to take all of her belongings from her. During my attempt to interview her, she was extremely agitated and irritable. Every time I attempted to address her, she told me basically to shut up. She was extremely irrational. and other family members did come in mid interview and did report that this is a sudden and dramatic mental status change and that she has not had a previous psychiatric history and that these behaviors are relatively new, occurring over the last 3-4 days. Nurses also report that her mental status has decompensated dramatically even in the last 24 hours. PAST MEDICAL HISTORY: Remarkable for adrenal adenoma, congestive heart failure and aneurysm, atypical chest pain, diastolic congestive heart failure, chronic kidney disease, history of CVAs and TIAs, hyperlipidemia, hypertension, anemia, non-STEMI, obesity, diabetes and vitamin D deficiency. The patient denies alcohol consumption and does not drink or smoke. MENTAL STATUS: She is alert and oriented to person, select others place, uncertain about time. Mood is wildly labile. Affect is inappropriate. She was volatile and hostile, grossly delusional and paranoid. Memory does have gaps. DIAGNOSIS: Brief psychotic disorder. PLAN: I will utilize PRNs at this point. Nurses report she will not take anything by mouth, so I will order Geodon 10 mg IM q. 4 hours as needed and Ativan 1 mg IM q. 4 hours as needed. I will also do some further screening examinations if she will cooperate. At this point, she is an excellent candidate for BHU placement when she is medically stable. PATRIA COBURN MD CM:CONSTR:REPORT OF CONSULTATION 0925 07/01/17 1039 interface
[~2017-06-29 13:27] MED LIST changes: +ASPIRIN ADULT L81 M2 PO; +ATACAND PO; +K-TAB10 MEQ PO; +LASIX20 MG PO; +LOSARTAN POTASS50 M1 PO; +Lovenox40 MG/0.4 SC; +VISTARIL25 MG PO
[2017-06-29] MEDS ORDERED: CANDESARTAN CIL32 M1 PO (13:40)
[2017-06-29 14:11] LABS: BASO # 0.1 10*3/uL (0.0-0.1); BASO % 0.6 % (0.0-1.0); EOS # 0.2 10*3/uL (0.0-0.4); EOS % 1.7 % (1.0-4.0); HEMOGLOBIN 11.9 g/dl (12.0-16.0); LYMPH % 22.9 % (27.0-41.0); MEAN CELL VOLUME 90.9 fl (81.0-99.0); MEAN CORPUSCULAR HGB 27.7 pg (27.0-31.0); MEAN CORPUSCULAR HGB CONC 30.5 g/dl (33.0-37.0); MEAN PLATELET VOLUME 10.1 fl (9.6-12.3); MONO # 0.6 10*3/uL (0.1-1.0); MONO % 6.4 % (3.0-9.0); NEUT # 5.8 10*3/uL (2.3-7.9); NEUT % 67.9 % (47.0-73.0); PLATELET COUNT AUTOMATED 299 10*3/uL (130-400); RED BLOOD COUNT 4.29 10*6/uL (4.10-5.10); RED CELL DISTRI WIDTH 13.9 % (0-14.5); WHITE BLOOD COUNT 8.6 10*3/uL (4.8-10.8)
[2017-06-29 14:16] VITALS: BP 179/70
[2017-06-29 14:25] LABS: ALBUMIN 3.3 gm/dl (3.1-4.5); ALKALINE PHOSPHATASE 83 U/L (45-117); BUN 16 mg/dl (7-24); CHLORIDE 112 mmol/L (98-107); CREATININE 0.76 mg/dL (0.55-1.02); POTASSIUM 3.6 mmol/L (3.5-5.1); SGOT/AST 13 IU/L (3-35); SGPT/ALT 9 U/L (12-78); SODIUM 145 mmol/L (136-145); TOTAL PROTEIN 5.9 gm/dL (6.4-8.2)
[2017-06-29 14:58] VITALS: BP 154/72
[2017-06-29 16:20] VITALS: BP 167/75
[2017-06-29 20:00] VITALS: BP 150/88
[2017-06-30] VITALS: BP 155/88
[2017-06-30 06:51] LABS: BASO % 0.5 % (0.0-1.0); HEMOGLOBIN 12.5 g/dl (12.0-16.0); LYMPH % 25.9 % (27.0-41.0); MEAN CELL VOLUME 93.1 fl (81.0-99.0); MEAN CORPUSCULAR HGB 27.7 pg (27.0-31.0); MEAN CORPUSCULAR HGB CONC 29.8 g/dl (33.0-37.0); MEAN PLATELET VOLUME 10.2 fl (9.6-12.3); NEUT # 2.8 10*3/uL (2.3-7.9); NEUT % 72.1 % (47.0-73.0); PLATELET COUNT AUTOMATED 303 10*3/uL (130-400); RED BLOOD COUNT 4.51 10*6/uL (4.10-5.10); RED CELL DISTRI WIDTH 13.6 % (0-14.5); WHITE BLOOD COUNT 3.9 10*3/uL (4.8-10.8)
[2017-06-30 07:25] LABS: SODIUM 142 mmol/L (136-145)
[2017-06-30 07:26] LABS: CHLORIDE 108 mmol/L (98-107); POTASSIUM 3.9 mmol/L (3.5-5.1)
[2017-06-30 07:54] LABS: ALBUMIN 3.6 gm/dl (3.1-4.5); ALKALINE PHOSPHATASE 94 U/L (45-117); BUN 13 mg/dl (7-24); PHOSPHOROUS 2.8 mg/dL (2.5-4.9); SGOT/AST 18 IU/L (3-35); SGPT/ALT 13 U/L (12-78); TOTAL PROTEIN 6.8 gm/dL (6.4-8.2)
[2017-06-30 16:00] VITALS: BP 173/83
[2017-06-30 16:30] VITALS: BP 162/80
[2017-06-30 20:00] VITALS: BP 152/93
[2017-07-01] VITALS: BP 175/90
[2017-07-01 06:01] LABS: BILIRUBIN NEGATIVE (NEGATIVE); BLOOD TRACE-LYSED (NEGATIVE); CLARITY CLEAR (CLEAR); COLOR YELLOW (YELLOW); GLUCOSE 2+ (NEGATIVE); KETONE 1+ (NEGATIVE); LEUKO ESTERASE NEGATIVE (NEGATIVE); NITRITE NEGATIVE (NEGATIVE); PH 5.5 (5.0-9.0); SPECIFIC GRAVITY 1.025 (1.005-1.030); UROBILINOGEN 0.2 E.U./dl (0.2-1.0)
[2017-07-01 08:00] VITALS: BP 148/82
[2017-07-01 12:06] LABS: VITAMIN D, 25-HYDROXY 26.9 ng/mL (30-100)
[2017-07-01] MEDS ORDERED: ASPIRIN81 M1 PO (16:01)
[2017-07-01] MEDS ORDERED: VITAMIN D-32000 UNI1 PO (16:01)
[2017-07-01] MEDS ORDERED: K-TAB20 MEQ PO (16:02)
[2017-07-01] MEDS ORDERED: LASIX20 MG PO (16:02)
== END 2017-07-01 14:06 | disposition home health service (06) | DRG 92 ==
LOC: ED 13:27 → EDHOLD 15:22 → 4E 15:22
PROVIDERS: Emergency Medicine; Internal Medicine; Internal Medicine Hospice and Palliative Medicine; Psychiatry & Neurology Psychiatry
DX: R27.0 Ataxia, unspecified (principal); I13.0 Hypertensive heart and chronic kidney disease with heart failure and stage 1 through stage 4 chronic kidney disease, or unspecified chronic kidney disease; L89.152 Pressure ulcer of sacral region, stage 2; E11.22 Type 2 diabetes mellitus with diabetic chronic kidney disease; I50.32 Chronic diastolic (congestive) heart failure; N18.3 Chronic kidney disease, stage 3 (moderate); F23 Brief psychotic disorder; H83.09 Labyrinthitis, unspecified ear; E78.5 Hyperlipidemia, unspecified; M54.5 Low back pain; G89.29 Other chronic pain; F41.9 Anxiety disorder, unspecified; I25.10 Atherosclerotic heart disease of native coronary artery without angina pectoris; F60.0 Paranoid personality disorder; E66.09 Other obesity due to excess calories; E55.9 Vitamin D deficiency, unspecified; D72.819 Decreased white blood cell count, unspecified; Z86.73 Personal history of transient ischemic attack (TIA), and cerebral infarction without residual deficits; Z88.8 Allergy status to other drugs, medicaments and biological substances; Z91.041 Radiographic dye allergy status; Z79.899 Other long term (current) drug therapy; Z79.84 Long term (current) use of oral hypoglycemic drugs; I25.2 Old myocardial infarction; Z95.5 Presence of coronary angioplasty implant and graft; Z68.25 Body mass index [BMI] 25.0-25.9, adult

== ENCOUNTER 2017-07-01 13:46 | Inpatient (IN) | payer MEDICARE, BC ==
[~2017-07-01] VITALS: Ht 157.4 cm; Wt 63.5 kg
--- NOTE | ~2017-07-01 | PR ---
[place], [place] PROGRESS NOTE [id number] UNIT #: [id number] ROOM: 316 DOCTOR: TARAS MENDENHALL MD BIRTHDATE: [birth year] DOS: 07/13/2017 SUBJECTIVE: Patient seen and spoke with the nursing staff. Per staff, the patient is doing well. No behavior problems or issues. Her antibiotics were changed and she started having some diarrhea. Medical team is following. The patient was pleasant and cooperative. She reports doing well. She said that probably she will be going home tomorrow. She did not express any other problems or concerns. She reported good sleep and appetite. MENTAL STATUS EXAMINATION: Pleasant, cooperative. Described her mood as "good." Affect, mood congruent. She denied auditory or visual hallucination. No delusion or paranoia noted. She denied suicidal ideation, intent or plan. She also denied homicidal ideation, intent or plan. PLAN: 1. Continue current medication and care. 2. Encourage activities and groups. 3. Supportive care. 4. Final medication management and discharge plan by the regular team. TARAS MENDENHALL MD CM:PNTRANS 28 TARAS MENDENHALL MD 07/14/17 1500 interface
--- NOTE | ~2017-07-01 | PR ---
[place], [place] PROGRESS NOTE NAME: MELISSA MA UNIT #: [id number] ROOM: 315 DOCTOR: PATRIA COBURN MD BIRTHDATE: [birth year] DOS: 07/05/2017 CHIEF COMPLAINT: "Oh there you are. Thank you for stopping." SUMMARY OF THE VISIT: The patient was interviewed in the dining area. She was sitting in a Radha chair, napping as I approached. She did engage in conversation with me and this time seemed to be a little bit more goal oriented. She seems to alternate between good and bad days and seem to be much more pleasant and cooperative today. She does seem to be tolerating the current medication regimen well. MENTAL STATUS: She is alert and oriented to person, possibly place, not time. Mood does seem to be trending towards euthymia. Affect is more appropriate. There is no arelis or hypomania. There are no gross psychotic symptoms at this time. Short term memory is very poor. PLAN: I will increase the Namenda to 5 mg twice daily as I targeted 10 mg twice daily dosing. Continue to engage in individual and travis milieu activity with the plan to return to the least restrictive environment when psychiatrically stable. PATRIA COBURN MD CM:PNTRANS 9 51 PATRIA COBURN MD 07/05/172050 interface
--- NOTE | ~2017-07-01 | PR ---
[place], [place] PROGRESS NOTE NAME: MELISSA MA UNIT #: [id number] ROOM: 315 DOCTOR: PATRIA COBURN MD BIRTHDATE: [birth year] DOS: 07/10/2017 CHIEF COMPLAINT: "I want to go home, you know my daughter is moving in the next to me. SUMMARY OF THE VISIT: The patient was interviewed as she sat in a Radha chair having eaten her breakfast. She engaged in pleasant conversation. She remains fixated on being able to go home and portrays a picture of being able to maintain all of her ADLs independently, which she is quite opposite of what reality is. The patient was pleasant, however, and did not become agitated, but continued to have very persistently state that she was ready to go home any day now. MENTAL STATUS: She remains alert and oriented to person, place, but not necessarily to time. Mood does seem to be more euthymic. She is having more good periods and less of the mood lability that was so prevalent upon admission. There is no significant hypomania or arelis. There are no auditory or visual hallucinations. No delusions, no paranoia. Short term memory has gaps, otherwise she is intact. PLAN: I will check a valproic acid level in the a.m. to ensure that the blood level is therapeutic and not too high or too low. We will continue the Namenda and Exelon. We will continue to engage in individual and travis milieu activity with the ultimate plan to admit to a long-term care facility for rehabilitation and a potentially longer stay id necessary. PATRIA COBURN MD CM:PNTRANS [id number] PATRIA COBURN MD 07/10/17 2331 interface
--- NOTE | ~2017-07-01 | PR ---
[place], [place] PROGRESS NOTE NAME: MELISSA MA UNIT #: [id number] ROOM: 316 DOCTOR: JENNIFER TAHIRA BIRTHDATE: [birth year] DOS: 07/11/2017 PSYCHIATRIC PROGRESS NOTE CHIEF COMPLAINT: "I want to go home." SUMMARY OF VISIT: The patient states that she would like to go home and patient states that she is able to ambulate on her own. When prompted on how she is walking the halls, she said she has been able to walk the halls with her 2 canes. Patient is currently sitting in a Radha chair in the dining room. She is currently engaging and pleasant in conversation, but she remains very fixated that she is going to go home, that she has no reason to be here and that she is able to take care of herself because she has family members that can help her do all the tasks to be mobile and independent at home. MENTAL STATUS EXAMINATION: Patient is alert and oriented to person and place. Her mood is euthymic. She is having pleasant mood, but her memory has some gaps in it in short term memory. There is no paranoia, hypomania or arelis. PLAN: Continue current medication regimen of VPA at 95.7 which is at therapeutic level and there are no signs of toxicity. We will continue to engage in individual activity and hopefully have a plan to admit to a long-term care facility for rehab. ADDENDUM Dr. Coburn 08/06 03:30 p.m.: Above note reviewed. Agree with observations, recommendations, and overall treatment plan. Tahira Rodriguez DO [place], [place] PROGRESS NOTE NAME: MELISSA MA UNIT #: [id number] ROOM: 316 DOCTOR: TAHIRA RODRIGUEZ DO BIRTHDATE: [birth year] PATRIA COBURN MD CM:PNAZRA 1011 T: TAHIRA RODRIGUEZ DO 08/06/17 1556 DON [email or web address].LLR
--- NOTE | ~2017-07-01 | PR ---
[place], [place] PROGRESS NOTE NAME: MELISSA MA [facility] #: [id number] UNIT #: [id number] ROOM: 316 DOCTOR: MICHALE BURNS DO BIRTHDATE: [birth year] DOS: 07/03/2017 PSYCHIATRIC PROGRESS NOTE She is a 76-year-old female. CHIEF COMPLAINT: "I don't know why I am here." SUMMARY OF VISIT: The patient is a 76-year-old female who was initially admitted to [facility] to the medical floor due to increased dizziness. She was admitted to the [facility] from the medical floor due to increasing agitational, delusional and verbal aggressiveness towards staff. She had made threats at that time regarding harm to her and harm to others on the hospital staff. Upon arrival to the unit, she did appear to be very confused. This morning, she was interviewed in the dining room. She was eating breakfast at that time while she sat in a Radha chair. She did not appear to be in any form of distress. She did continue to have pressured speech. When asked if she knew why she had arrived to the [facility], she stated she was unsure why she was there. This is a first time she has been able to answer all questions appropriately as she appeared more confused yesterday. Per nursing staff, she was given Ativan last night at around 1500; however, she has been compliant with medications. She slept 5 hours last night; however, she is not weightbearing for nursing staff. The patient was noted to be experiencing visual hallucinations per nursing staff overnight. MENTAL STATUS EXAMINATION: The patient is alert and oriented to self only. She does appear to have moments of being oriented to place. Her mood is labile and volatile. Her affect is inappropriate. She is continuing to have delusional and paranoia thoughts of others plotting against her. Her short term and jail memory are very poor and problematic. She is, however, able to initially answer our questions this morning; however, mid sentence, she completely derails to discuss other topics unrelated to the question asked. She appears to be very concerned about her belongings this morning. She is easily agitated; however, no bouts of yelling were noted during our encounter this morning. The patient continues to exhibit signs of impulsivity. PLAN: 1. We have increased Exelon patch from previous dose to 9.5 mg every day. 2. We have added Namenda 5 mg daily to psychotropic regimen. 3. We will continue all other psychotropic regimen as this appears to be improving her cognition and her overall thought process. 4. Medical comorbid conditions are being managed by the inpatient hospitalist team who are currently following with the patient's treatment in the U. DISPOSITION: The patient likely to be discharged sometime next week. We will continue to engage the patient in individual and travis milieu activity, returning to the least restrictive environment when psychiatrically stable. Of note, the appears to be the power of commercial attorney and he was offered placement options, however, this was refused at that time. Currently, the social workers will be working with the and the patient to determine what options are [place], [place] PROGRESS NOTE NAME: MELISSA MA UNIT #: [id number] ROOM: [facility] DOCTOR: MICHAEL BURNS DO BIRTHDATE: [birth year] available as this patient may require more assistance than what is provided at home. Michael Burns DO PATRIA COBURN MD CM:PNTRANS [id number] MICHAEL BURNS DO 07/23/17 1306 interface
--- NOTE | ~2017-07-01 | PR ---
[place], [place] PROGRESS NOTE [id number] UN[facility] #: [id number] ROOM: 316 DOCTOR: ROCIO BURNS DO BIRTHDATE: [birth year] DOS: 07/04/2017 CHIEF COMPLAINT: "Get out." SUMMARY OF VISIT: The patient is a 76-year-old female who was initially admitted to [facility] to the medical floor due to increased dizziness. She was then admitted to the [facility] from the medical floor due to increased agitation, delusional and verbal aggressiveness towards nursing staff. She had threatened at one point to harm her and the hospital staff. Today the patient was interviewed in the quiet room. At that time, she was sitting in a Radha chair and the tray was in place. When asked if she needed anything today she became very irritable and angry. She appeared to become agitated by our questioning and requested that we leave her alone. She was eating breakfast. At that time, she did not appear to be reoriented or redirected. Per nursing staff, the patient had stayed up until 11:00 p.m. She continued to have screaming and yelling at nursing staff intermittently throughout the night. She was noted to be experiencing visual hallucinations. Ativan was given p.r.n. due to increased combativeness, and irritability. She was unable to be redirected. She was noted to have urinary incontinence this morning. This visit was short due to patient's increasing agitation and request for us to leave. MENTAL STATUS EXAMINATION: The patient is alert and oriented to self only. She does appear to continue to have a labile and volatile mood. Her affect is inappropriate. She is continuing to have delusional and thoughts of paranoia including stating that her grandson, Jovi was dying, was very fixated on this topic. Her speech was pressured. Her thoughts were disjointed. She was easily derailed in her thought process and sentence. She appeared to be very irritable and agitated this morning. She continue to have bouts of yelling during our encounter. She has been exhibiting signs of impulsivity per nursing staff overnight. Short term memory appears to be problematic still and continues to have gaps. PLAN: 1. We have increased her Exelon patch to 13.3 mg every day. 2. We have started Depakote 500 mg t.i.d. 3. Options for placement have been offered to family; however, is refusing these options currently. We will continue to work with family to find the best options for discharge placement with family. DISPOSITION: The patient likely to be discharged sometime next week. We will continue to engage the patient in individual and board milieu activity, returning to the least restrictive environment when psychiatrically stable. Discharge will depend on medical and psychiatric status at that time. Internal medicine hospitalist team is currently managing the patient's medical comorbidities at this time. ADDENDUM BY DR. COBURN 07/17/17 11:15 AM: [place], [place] PROGRESS NOTE NAME: MELISSA MA Ej UNIT #: [id number] ROOM: [facility] DOCTOR: ROCIO BURNS DO BIRTHDATE: [birth year] Above note reviewed. Agree with observations, recommendations, and overall treatment plan. Rocio Burns DO PATRIA COBURN MD CM:UMM 1340 T: ROCIO BURNS DO 07/17/17 1405 DON PITTMAN.R
--- NOTE | ~2017-07-01 | PR ---
[place], [place] PROGRESS NOTE NAME: [facility]ISSA [facility] [id number] UNIT #: [id number] ROOM: 316 DOCTOR: MICHAEL BURNS DO BIRTHDATE: [birth year] DOS: 07/09/2017 CHIEF COMPLAINT: "I don't know what I'm doing here." "I'm 77 years old, I cook and clean at home." SUMMARY OF VISIT: The patient is a 76-year-old white female who was admitted to [facility] originally to the medical floor due to increased dizziness and delusions, aggressive behavior towards nursing staff and currently on hospital day #8 with improved mood, but persistent unwillingness to participate in PT and OT. The patient was interviewed today in the dining room. She was sitting in a Radha chair and did not appear to be in any distress. Per nursing staff, patient was noted to have decreased urine output last night. She slept for 11 hours yesterday and there was concern for possible urinary output. This was relayed to the internal medicine hospitalist who recommended that we bladder scan pre and post void to determine etiology of urinary retention. Today when asked if she had any needs, she just stated that she did not know where she was, also why she was still here. Patient also was complaining of blurry vision bilaterally and dry mouth. This is the first time that patient has voiced these concerns during morning rounds. Patient reports that she drank coffee this morning and did not eat as she does not regularly eat breakfast at home. Patient did not voice any other concerns at that time. When asked about her daily life at home, she stated that she cooks and cleans at home and that she is able to ambulate with two canes. She was informed that we were concerned that she was not participating in OT and PT; she stated that with her having to ambulate with canes, she believed that her mobility was already maximized. She also stated that she did not want to go to a detention facility at that time. She appeared to be slightly confused and became irritable when questioned about her willingness to participate in physical therapy. MENTAL STATUS EXAMINATION: The patient is alert and oriented to person only. When asked where she was, she was actually able to identify that she was at [facility]. When asked if she knew her age, she stated that she is 77, which is close to accurate as the patient is currently 76 years old. When asked about the time, she was not oriented to the time or year. She was unable to answer this question and quickly discussed her ability to cook and clean at home. No signs of aggressive behavior were noted during my exam. She easily engaged in conversation despite being unable to answer all questions appropriately. She did become irritable though when asked about her willingness to participate in PT. Her mood is trending towards more euthymic. Her affect is irritable. PLAN: 1. No changes to be made to psychotropic regimen as the patient is currently tolerating this regimen well. No significant side effects have been noted. Patient was encouraged to increase p.o. intake for dry mouth and blurry vision she stated was secondary to her age. This complaint will also be relayed to the medical team and Dr. Coburn to ensure it is addressed. 2. Per chart review, patient was scheduled to undergo occupational therapy. They noted that patient was refusing to complete certain portions of the exercises and was unwilling to participate. The patient was returned to the [place], [place] PROGRESS NOTE NAME: [facility] #: [id number] UNIT #: [id number] ROOM: [facility] DOCTOR: MICHAEL BURNS DO BIRTHDATE: [birth year] Radha chair and nursing staff was notified. They recommended discharge to a long-term care facility. The patient also was scheduled for physical therapy today upon chart review; patient was refusing to assist with standing. She wanted to sit. When the patient voiced that she uses a cane to ambulate, she was provided with one; however, she still was unwilling to partake in physical therapy. At this time, they have discontinued physical therapy for her given no significant improvement in patient's unwillingness to participate in physical therapy. 3. Patient was started on Bactrim by internal medicine hospitalist; this is currently being managed by them. 4. Patient is to be discharged to a detention facility when a bed becomes available. Of note, the patient's was initially refusing for SNF placement; however, he does agree to a 30-day rehab. This is being discussed with the tool and production planner and the child protective services social worker and the in conjunction with possible beds that may become available at a SNF. Discharge will depend on patient's psychiatric and medical status at that time. Until then, we will continue to engage the patient in individual and travis milieu activity, returning to the least restrictive environment when psychiatrically stable. Due to concern for urinary retention, a bladder scan was ordered. Pre-void was 398 mL and postvoid was 12 mL. This was due to concern for urinary retention and possible obstruction. For these reasons, the patient was started on Bactrim. This is currently managed by the internal hospitalist team. ADDENDUM BY DR. COBURN 07/17/17 11:15 AM: Above note reviewed. Agree with observations, recommendations, and overall treatment plan. Michael Burns DO [place], [place] PROGRESS NOTE NAME: MELISSA MA Ej UNIT #: [id number] ROOM: [facility] DOCTOR: MICHAEL BURNS DO BIRTHDATE: [birth year] PATRIA COBURN MD CM:PNTRANS [id number] T: MICHAEL BURNS DO 07/17/17 1406 DON PITTMAN.NANCYR
--- NOTE | ~2017-07-01 | PR ---
[place], [place] PROGRESS NOTE [id number] UN[facility] #: [id number] ROOM: 316 DOCTOR: ROCIO BURNS DO BIRTHDATE: [birth year] DOS: 07/07/2017 PSYCHIATRIC PROGRESS NOTE CHIEF COMPLAINT: "My son keeps on asking when is rowena bean come home." SUMMARY OF THE VISIT: The patient is a 76-year-old female who was initially admitted to [facility] to the medical floor due to increased dizziness. She was admitted to the U from the medical floor due to increased agitation and delusional and verbal aggressiveness towards nursing staff. She was at that time threatening to harm her and others including hospital staff. Today, the patient is currently on hospital day #6 and she is continuing to have episodes of confusion and agitation. The patient was interviewed today in a quiet room. She was in a Radha chair at that time. She readily engaged in conversation. She did seem concerned about her discharge. She was adamant that she was going to be discharged today as she needs to take care of her son. It is unclear at this time if she has a child who has special needs; however, she states that she needs to be home to take care of him. Of note, when we entered the room, the patient smelled of urine. She has been having episodes of urinary incontinence per nursing staff. The patient slept 9 hours per nursing staff and still is requiring a Diana lift for transfers. It is unclear if the patient is able to bear weight as she does sometimes ____. Per OT notes, the patient declined to participate in strength training, stating that she was tired and needed to take a nap. Today, the patient was very irritable and stating that she needed to be home. She was confused and irritable. MENTAL STATUS EXAMINATION: The patient was alert and oriented to person. Mood was irritable. Affect was anxious. The patient continues to appear to be confused. Of note, yesterday night, the patient was noted to say that her family member was going to come to the U and start to shoot people. Due to the severity of this comment, protocol was followed to alert Dr. Coburn. The [facility] nursing supervisor taping was also notified in addition to the [facility] director. The family was also contacted in regards to this statement and state I do not know, they said "I don't know why she would make these accusations, nothing was said like that, she is confused." Today no signs of agitation or aggressive behavior were noted. PLAN: 1. Namenda has been increased to 10 mg b.i.d. 2. Occupational Therapy has been consulted; however, the patient did decline to participate in exercises today. 3. Disposition: We are working with the keycase assembler and inventory control planner to coordinate discharge options. Until then we will continue to engage the patient individual and travis milieu activity, returning to the least restrictive environment when psychiatrically Stable. Discharge will be likely sometime this week pending on patient's medical and psychiatric status at that time. ADDENDUM BY DR. COBURN 07/17/17 11:15 AM: [place], [place] PROGRESS NOTE NAME: MELISSA MA UNIT #: [id number] ROOM: [facility] DOCTOR: ROCIO BURNS DO BIRTHDATE: [birth year] Above note reviewed. Agree with observations, recommendations, and overall treatment plan. Rocio Burns DO PATRIA COBURN MD CM:UMM [id number] T: ROCIO BURNS DO 07/17/17 1405 DON PITTMAN.NANCYR
--- NOTE | ~2017-07-01 | PR ---
[place], [place] PROGRESS NOTE NAME: MELISSA MA UNIT #: [id number] ROOM: 315 DOCTOR: PATRIA COBURN MD BIRTHDATE: [birth year] DOS: 07/06/2017 CHIEF COMPLAINT: "I need to go home. I need to take care of my son." SUMMARY OF THE VISIT: The patient was interviewed as she sat in a Radha chair, having eaten breakfast. She engaged in conversation and was bright and pleasant and engaging with me. At one point, she held my hand and told me that she was worried about her family and was hoping to be able to get home soon with them. She did state that she slept well, had a good breakfast and is now ready to get back to the day's activities. She does seem to be tolerating the current drug regimen well and I see no sedation, somnolence or extrapyramidal symptoms or tardive dyskinesia. PLAN: At this point is to increase Namenda to 15 mg a day, maintain Exelon, maintain her other psychotropics, returning to the least restrictive environment when stable. PATRIA COBURN MD CM:PNTRANS [id number] PATRIA COBURN MD 07/06/17 1317 interface
--- NOTE | ~2017-07-01 | PR ---
[place], [place] PROGRESS NOTE NAME[id number] UNIT #: [id number] ROOM: 315 DOCTOR: TARAS MENDENHALL MD BIRTHDATE: [birth year] DOS: 07/12/2017 PSYCHIATRIC PROGRESS NOTE SUBJECTIVE: The patient seen and spoke with the staff. Per staff, the patient is doing better, not screaming anymore. She is on antibiotic for urinary tract infection. She was pleasantly confused. The patient was pleasant and cooperative. She was in her room. She reports doing good. She said that she slept well and her mood is also better. She denied any side effect from the medication. MENTAL STATUS EXAMINATION: Pleasant, cooperative. Described her mood as "good." Affect, mood congruent. Thought processes with confabulation. She denied auditory or visual hallucination. No delusion or paranoia noted. She denied suicidal ideation, intent or plan. She also denied homicidal ideation, intent or plan. PLAN: 1. Continue current medication and care. 2. Continue redirection. 3. Supportive care. TARAS MENDENHALL MD CM:PNTRANS [id number] [id number] TARAS MENDENHALL MD 07/13/17 0333 interface
--- NOTE | ~2017-07-01 | WRIGHTHP ---
[place], [place] PATIENT HISTORY AND PHYSICAL EXAM NAME: MELISSA MA [facility] #: [id number] UNIT #: [id number] ROOM: 315 DOCTOR: PATRIA COBURN MD BIRTHDATE: [birth year] DOS: 07/02/2017 CHIEF COMPLAINT: "I am not a patient here, I need to go home." HISTORY OF PRESENT ILLNESS: This is a 76-year-old female who was initially admitted to [facility] medical floor due to increased dizziness. While there, the patient was found to be increasingly agitated and combative. The patient was grossly psychotic and delusional and was verbally aggressive towards staff. The patient was threatening to burn the hospital down. She was making threats towards her as well. Family notes that this has been a progressive liner roll changer the last 6 months, worse in the last several weeks, during which time, she has been very much verbally and physically combative towards the . She is admitted now to the [facility] to rule out possible organic factors, to stabilize on medication, to return to the least restrictive environment when stable. PAST MEDICAL HISTORY: Remarkable for an adrenal adenoma, aneurysm, chronic diastolic congestive heart failure, chronic kidney disease stage 3, CVA, hyperlipidemia, hypertension, non-STEMI, obesity, diabetes, vitamin D deficiency, coronary artery disease and stage 2 decubitus sacrum. SOCIAL HISTORY: The patient denies alcohol, tobacco or illicit drug use. STRENGTHS: The patient has good strengths regarding a supportive family situation and being relatively healthy. MENTAL STATUS EXAMINATION: She is alert and oriented with significant time gaps. Mood is wildly labile. Affect is inappropriate. She is grossly delusional and paranoid and believes that she is not a patient here and people are plotting against her. Her short-term memory is very poor and she processes conversation slowly. She is easily agitated and aggressive. She lacks insight into her illness and her judgment is extremely poor. She is extremely impulsive. DIAGNOSES: Brief psychotic disorder, rule out major depression with psychotic features and Alzheimer dementia. PLAN: Vitamin D level upon admission was low at 26.9. She is on vitamin D replacement already. I will start her on Exelon patch 4.6 mg a day for the dementia. I did start her yesterday on Risperdal M-Tab 0.5 mg twice daily. I will increase this to 1 mg twice daily. We will engage her in individual and travis milieu activity, returning to the least restrictive environment when psychiatrically stable. [place], [place] PATIENT HISTORY AND PHYSICAL EXAM NAME: MELISSA MA UNIT #: [id number] ROOM: [facility] DOCTOR: PATRIA COBURN MD BIRTHDATE: [birth year] PATRIA COBURN MD CM:HISPHYS:PATIENT HISTORY AND PHYSICAL EXAMINATION [id number] PATRIA COBURN MD 07/02/17 1119 interface
--- NOTE | ~2017-07-01 | PR ---
[place], [place] PROGRESS NOTE [id number] UN[facility] #: [id number] ROOM: 316 DOCTOR: MICHAEL BURNS DO BIRTHDATE: [birth year] DOS: 07/08/2017 CHIEF COMPLAINT: "Are you the doctor?" SUMMARY OF VISIT: The patient is a 76-year-old female who was initially admitted to [facility] to the medical floor due to increased dizziness and delusional and aggressive behavior towards nursing staff. The patient was admitted to the U from the medical floor and currently on hospital day #7 with improved mood. The patient today was interviewed in the dining room. She appeared to be in new form of distress. She was sitting in a Radha chair at that time. She did appear more sleepy today compared to other days. Patient appeared slightly confused and did not recognize Dr. Coburn. We informed the patient that PT had recommended for her to be discharged to SNF for additional rehabilitation. The patient stated that she would like to be discharged home. She did not agree to going to SNF for rehabilitation. The patient was informed that it was noted that she was unwilling to participate in occupational therapy. She stated that she just wanted to go home. The patient was drifting off into sleep, doing her responses mid sentence. She started to become irritable. Per nursing staff, the patient was medication compliant last night, pleasant and slept for 10 hours. The patient's last bowel movement was 06/29/2017 and has not been complaining of any abdominal pain or constipation. The patient did not voice any other concerns at that time. MENTAL STATUS EXAMINATION: The patient is alert and oriented to person. Her mood was somewhat irritable. Her affect was more appropriate, but she appeared to still be confused. No signs of aggressive behavior were noted during my encounter. She did appear more somnolent; however, she was easily arousable and did respond to our questions. PLAN: 1. No changes to be made to the psychotropic regimen as the patient is tolerating this regimen well. No side effects noted. 2. Today, the patient's , Pierre Ma, was contacted to discuss PT's recommendation. This conference call was attended by the child development specialist, the patient's nurse, myself and the patient's was informed that PT's recommendation was that the patient were to be discharged to SNF and/or a 30-day rehabilitation center to improve strength and prevent deconditioning. The patient's was also made aware that the patient was not showing signs of effort to participate in OT and PT. Per PT's note, the patient did not appear to make efforts to participate in the exercises this morning. This information was relayed to the patient's . He voiced understanding that the patient was requiring more assistance at home. He did confirm also that the patient lives at home with himself and a mentally disabled child who receives SSI. He states that he does need more work at home. The social sciences lecturer then encouraged the patient's to come into the U to discuss further discharge planning. He stated he would come into the U today to discuss more options. He did seem willing to consider this option as he admits to needing more assistance at home. It appears his main concern initially were financial; however, when discussed that options may be available for financial assistance, he became more willing to discuss these options. We will await his arrival to [place], [place] PROGRESS NOTE NAME: MELISSA MA UNIT #: [id number] ROOM: [facility] DOCTOR: MICHAEL BURNS DO BIRTHDATE: [birth year] the [facility] to see what he would like to do in regards to discharge planning. 3. Disposition likely to be sometime later this week pending on the patient's medical and psychiatric status at that time. We will continue to engage the patient in individual and travis milieu activity, returning to the least restrictive environment when psychiatrically stable. ADDENDUM BY DR. COBURN 07/17/17 11:15 AM: Above note reviewed. Agree with observations, recommendations, and overall treatment plan. Michael Burns DO PIERRE COBURN MD CM:UMM 1201 T: MICHAEL BURNS DO 07/17/17 1405 DON PITTMAN MIS.R
--- NOTE | ~2017-07-01 | DS ---
[place], [place] DISCHARGE SUMMARY [id number] UN[facility] #: [id number] ROOM: 316 DOCTOR: PATRIA COBURN MD BIRTHDATE: [birth year] DOS: 07/14/2017 CHIEF COMPLAINT: "I am not a patient here, I need to go home." HISTORY OF PRESENT ILLNESS: This is a 76-year-old female who was initially admitted to [facility] medical floor due to increased dizziness. While there, the patient was found to be increasingly agitated and combative. The patient was grossly psychotic and delusional and verbally aggressive towards staff. The patient did threaten to burn the hospital down. She was making threats to her as well. Family notes that this has been a progressive jacket changer the last 6 months, worse in the last several weeks, during which time she has been very verbally and physically combative towards the . She is admitted now to the [facility] to rule out possible organic factors, to stabilize on medication, to return to the least restrictive environment when stable. PAST MEDICAL HISTORY: Remarkable for adrenal adenoma, aneurysm, chronic diastolic congestive heart failure, chronic kidney disease stage 3, CVA, hyperlipidemia, hypertension, non-STEMI, obesity, diabetes, vitamin D deficiency, coronary artery disease and stage II decubitus of the sacrum. SOCIAL HISTORY: The patient denies drinking alcohol, using illicit drugs or smoking tobacco. STRENGTHS: The patient has good verbal skills and supportive environment and is relatively healthy. SUMMARY OF HOSPITAL COURSE: The patient was admitted to the unit where her vitamin D level was found to be low at 26.9, so vitamin D was augmented at 50,000 International Units weekly. She was started on Exelon patch and Namenda both to improve ADL maintenance, behavior, and cognition and she was also given Risperdal M-Tab at the starting dose of 0.5 mg twice daily, increase then ultimately to 1 mg twice daily. With the combination of the Exelon patch moving gradually up from 4.6 to 9.5 and subsequently stabilized at 13.3 mg a day and the Namenda gradually being titrated upwards to its 10 mg twice a day dose, the patient improved sufficiently to return home. Efforts were made to improve the level of support that she and her family would have so home health agency was contacted to provide services there. She was discharged then on 07/14/2017 to return home. MENTAL STATUS AT DISCHARGE: She is alert and oriented with significant time gaps. Mood for the most part is euthymic. Affect is appropriate. There is no arelis or hypomania. There is no gross psychosis. Short term memory continues to be problematic, but overall, she is improving. FINAL DIAGNOSES UPON DISCHARGE: Intermittent explosive disorder and Alzheimer's dementia. PLAN: All of her prescriptions have been printed and will be filled here at the pharmacy at [facility]. Her aftercare has been set. She is [place], [place] DISCHARGE SUMMARY NAME: MELISSA MA UNIT #: [id number] ROOM: 316 DOCTOR: PATRIA COBURN MD BIRTHDATE: [birth year] medically and psychiatrically stable. Her biopsychosocial needs are adequately being met by the community at large and her family. PATRIA COBURN MD CM:DISCHARG [id number] PATRIA COBURN MD 07/14/17 1212 interface
[~2017-07-01 13:46] MED LIST changes: +CANDESARTAN CIL32 M1 PO
[2017-07-01 14:15] VITALS: BP 164/72
[2017-07-01 14:21] VITALS: BP 144/80; BP 164/72
[2017-07-01 15:33] VITALS: BP 164/72
[2017-07-01] MEDS ORDERED: ASPIRIN81 M1 PO (16:01)
[2017-07-01] MEDS ORDERED: VITAMIN D-32000 UNI1 PO (16:01)
[2017-07-01] MEDS ORDERED: K-TAB20 MEQ PO (16:02)
[2017-07-01] MEDS ORDERED: LASIX20 MG PO (16:02)
[2017-07-01 20:00] VITALS: BP 163/75
[2017-07-02 07:50] VITALS: BP 132/68
[2017-07-02 20:10] VITALS: BP 115/67
[2017-07-03 07:38] VITALS: BP 148/70
[2017-07-03 20:23] VITALS: BP 120/88
[2017-07-04 08:01] VITALS: BP 128/66
[2017-07-04 19:58] VITALS: BP 134/86
[2017-07-05 08:07] VITALS: BP 117/65
[2017-07-05 09:17] VITALS: BP 136/64
[2017-07-05 20:00] VITALS: BP 142/86
[2017-07-06 07:56] VITALS: BP 133/67
[2017-07-06 20:00] VITALS: BP 138/64
[2017-07-07 07:35] VITALS: BP 134/68
[2017-07-07 20:00] VITALS: BP 128/66
[2017-07-08 07:40] VITALS: BP 136/67
[2017-07-08 19:54] VITALS: BP 132/70
[2017-07-09 07:49] VITALS: BP 128/78
[2017-07-09 11:45] LABS: BILIRUBIN NEGATIVE (NEGATIVE); BLOOD 3+ (NEGATIVE); CLARITY TURBID (CLEAR); COLOR YELLOW (YELLOW); GLUCOSE NEGATIVE (NEGATIVE); KETONE TRACE (NEGATIVE); LEUKO ESTERASE 3+ (NEGATIVE); NITRITE NEGATIVE (NEGATIVE); PH 5.5 (5.0-9.0); SPECIFIC GRAVITY >= 1.030 (1.005-1.030); UROBILINOGEN 0.2 E.U./dl (0.2-1.0)
[2017-07-09 12:39] LABS: BACTERIA 2+; EPITHELIAL CELLS 20-30; WBC TNTC wbc/hpf (0-5)
[2017-07-09 20:00] VITALS: BP 127/66
[2017-07-10 08:01] VITALS: BP 111/68
[2017-07-10 20:00] VITALS: BP 147/57
[2017-07-11 08:23] VITALS: BP 105/57
[2017-07-11 08:45] VITALS: BP 105/57; BP 138/70
[2017-07-11 19:29] VITALS: BP 121/58
[2017-07-12 07:41] VITALS: BP 130/69
[2017-07-12 08:09] LABS: BASO % 0.4 % (0.0-1.0); EOS # 0.1 10*3/uL (0.0-0.4); EOS % 1.7 % (1.0-4.0); HEMATOCRIT 33.6 % (37.0-47.0); HEMOGLOBIN 9.9 g/dl (12.0-16.0); LYMPH # 2.2 10*3/uL (1.3-4.4); LYMPH % 26.4 % (27.0-41.0); MEAN CELL VOLUME 93.6 fl (81.0-99.0); MEAN CORPUSCULAR HGB 27.6 pg (27.0-31.0); MEAN CORPUSCULAR HGB CONC 29.5 g/dl (33.0-37.0); MEAN PLATELET VOLUME 11.1 fl (9.6-12.3); MONO # 0.5 10*3/uL (0.1-1.0); MONO % 6.5 % (3.0-9.0); NEUT # 5.3 10*3/uL (2.3-7.9); NEUT % 63.2 % (47.0-73.0); PLATELET COUNT AUTOMATED 204 10*3/uL (130-400); RED BLOOD COUNT 3.59 10*6/uL (4.10-5.10); RED CELL DISTRI WIDTH 14.6 % (0-14.5); WHITE BLOOD COUNT 8.3 10*3/uL (4.8-10.8)
[2017-07-12 08:49] LABS: ALBUMIN 2.7 gm/dl (3.1-4.5); CREATININE 1.13 mg/dL (0.55-1.02); POTASSIUM 4.8 mmol/L (3.5-5.1); TOTAL PROTEIN 5.4 gm/dL (6.4-8.2)
[2017-07-12 20:00] VITALS: BP 128/64
[2017-07-13 07:46] VITALS: BP 126/67
[2017-07-13 20:00] VITALS: BP 110/67
[2017-07-14 07:05] LABS: BASO % 0.2 % (0.0-1.0); EOS # 0.1 10*3/uL (0.0-0.4); EOS % 0.8 % (1.0-4.0); HEMATOCRIT 34.2 % (37.0-47.0); HEMOGLOBIN 10.3 g/dl (12.0-16.0); LYMPH # 1.9 10*3/uL (1.3-4.4); LYMPH % 15.2 % (27.0-41.0); MEAN CELL VOLUME 91.9 fl (81.0-99.0); MEAN CORPUSCULAR HGB 27.7 pg (27.0-31.0); MEAN CORPUSCULAR HGB CONC 30.1 g/dl (33.0-37.0); MONO # 0.7 10*3/uL (0.1-1.0); MONO % 5.7 % (3.0-9.0); NEUT # 9.7 10*3/uL (2.3-7.9); PLATELET COUNT AUTOMATED 200 10*3/uL (130-400); RED BLOOD COUNT 3.72 10*6/uL (4.10-5.10); RED CELL DISTRI WIDTH 14.6 % (0-14.5); WHITE BLOOD COUNT 12.5 10*3/uL (4.8-10.8)
[2017-07-14 07:36] LABS: CREATININE 1.12 mg/dL (0.55-1.02); TOTAL PROTEIN 5.8 gm/dL (6.4-8.2)
[2017-07-14 07:44] LABS: VALPROIC ACID (DEPAKENE) 90.1 ug/ml (50-100)
[2017-07-14 08:16] VITALS: BP 112/69
[2017-07-14] MEDS ORDERED: RISPERIDONE M-TA1 MG BC (09:55)
[2017-07-14] MEDS ORDERED: EXELON13.3 MG/21 T (09:55)
[2017-07-14] MEDS ORDERED: DIVALPROEX SOD125 M1 PO (09:55)
[2017-07-14] MEDS ORDERED: MEMANTINE HCL10 MG PO (09:55)
== END 2017-07-14 11:42 | disposition home or self-care (01) | DRG 56 ==
LOC: 3N 13:46
PROVIDERS: Emergency Medicine; Registered Nurse
DX: G30.9 Alzheimer's disease, unspecified (principal); I21.4 Non-ST elevation (NSTEMI) myocardial infarction; I13.0 Hypertensive heart and chronic kidney disease with heart failure and stage 1 through stage 4 chronic kidney disease, or unspecified chronic kidney disease; L89.152 Pressure ulcer of sacral region, stage 2; I50.32 Chronic diastolic (congestive) heart failure; E11.22 Type 2 diabetes mellitus with diabetic chronic kidney disease; F02.80 Dementia in other diseases classified elsewhere, unspecified severity, without behavioral disturbance, psychotic disturbance, mood disturbance, and anxiety; F23 Brief psychotic disorder; N18.3 Chronic kidney disease, stage 3 (moderate); Z86.73 Personal history of transient ischemic attack (TIA), and cerebral infarction without residual deficits; E66.9 Obesity, unspecified; I25.2 Old myocardial infarction; F63.81 Intermittent explosive disorder; I25.10 Atherosclerotic heart disease of native coronary artery without angina pectoris; F41.9 Anxiety disorder, unspecified; G89.29 Other chronic pain; M54.5 Low back pain; E78.5 Hyperlipidemia, unspecified; E55.9 Vitamin D deficiency, unspecified; D35.00 Benign neoplasm of unspecified adrenal gland; I72.9 Aneurysm of unspecified site; Z88.8 Allergy status to other drugs, medicaments and biological substances; Z91.041 Radiographic dye allergy status; Z79.899 Other long term (current) drug therapy; Z79.82 Long term (current) use of aspirin; Z79.84 Long term (current) use of oral hypoglycemic drugs; Z79.01 Long term (current) use of anticoagulants; Z95.5 Presence of coronary angioplasty implant and graft; Z68.25 Body mass index [BMI] 25.0-25.9, adult

== ENCOUNTER 2018-11-06 08:10 | Inpatient (IN) | payer MEDICARE, BC ==
[~2018-11-06] VITALS: Ht 154.9 cm; Wt 59.9 kg
[~2018-11-06 08:10] MED LIST changes: +ASPIRIN81 M1 PO; +DEPAKOTE125 MG PO; +DIVALPROEX SOD125 M1 PO; +EXELON13.3 MG/21 T; +K-TAB20 MEQ PO; +MECLIZINE HCL25 M2 PO; +MEMANTINE HCL10 MG PO; +Nystatin Ointme30 GM T; +RISPERIDONE M-TA1 MG BC; +XANAX0.25 MG PO
[2018-11-06 08:21] VITALS: BP 160/119
--- NOTE | 2018-11-06 08:29 | NUR ---
FAMILY REQUESTING TO USE URINARY CATHETER. STATES THAT SHE HAS URINATRY FREQ AND PT HAS COMPLAINTS OF NEEDING TO MOVE HER BOWELS, PT AGAIN ASSITED ONTO BEDPAN. DAUGTER AT BEDSIDE.
[2018-11-06] MEDS ORDERED: TRAMADOL HCL50 MG PO (08:30)
[2018-11-06] MEDS ORDERED: XANAX0.5 MG PO (08:31)
[2018-11-06] MEDS ORDERED: MILLIPRED5 MG PO (08:32)
[2018-11-06] MEDS ORDERED: ATACAND4 MG PO (08:32)
[2018-11-06] MEDS ORDERED: DEPAKOTE125 MG PO ×2 (08:33→12:27)
[2018-11-06 08:58] LABS: BASO % 0.6 % (0.0-1.0); EOS # 0.1 10*3/uL (0.0-0.4); EOS % 1.4 % (1.0-4.0); HEMATOCRIT 42.8 % (37.0-47.0); HEMOGLOBIN 12.4 g/dl (12.0-16.0); LYMPH # 1.9 10*3/uL (1.3-4.4); LYMPH % 37.2 % (27.0-41.0); MEAN CELL VOLUME 83.1 fl (81.0-99.0); MEAN CORPUSCULAR HGB 24.1 pg (27.0-31.0); MEAN PLATELET VOLUME 9.3 fl (9.6-12.3); MONO # 0.3 10*3/uL (0.1-1.0); MONO % 5.8 % (3.0-9.0); NEUT # 2.7 10*3/uL (2.3-7.9); NEUT % 54.2 % (47.0-73.0); PLATELET COUNT AUTOMATED 287 10*3/uL (130-400); RED BLOOD COUNT 5.15 10*6/uL (4.10-5.10); RED CELL DISTRI WIDTH 17.5 % (0-14.5)
[2018-11-06 09:08] LABS: BILIRUBIN NEGATIVE (NEGATIVE); BLOOD NEGATIVE (NEGATIVE); CLARITY CLEAR (CLEAR); COLOR YELLOW (YELLOW); GLUCOSE NEGATIVE (NEGATIVE); KETONE NEGATIVE (NEGATIVE); LEUKO ESTERASE NEGATIVE (NEGATIVE); NITRITE NEGATIVE (NEGATIVE); SPECIFIC GRAVITY <= 1.005 (1.005-1.030); UROBILINOGEN 0.2 E.U./dl (0.2-1.0)
[2018-11-06 09:09] LABS: ACT PARTIAL THROMBO TIME 37.1 SECONDS (20.0-32.1); INTERNATIONAL NORM RATIO 0.9 (2.0-3.5)
[2018-11-06 09:13] LABS: ALBUMIN 3.3 gm/dl (3.1-4.5); ALKALINE PHOSPHATASE 69 U/L (45-117); BUN 14 mg/dl (7-24); CHLORIDE 104 mmol/L (98-107); CREATININE 0.75 mg/dL (0.55-1.02); LIPASE 73 U/L (73-393); POTASSIUM 3.5 mmol/L (3.5-5.1); SGOT/AST 6 IU/L (3-35); SGPT/ALT 11 U/L (12-78); SODIUM 137 mmol/L (136-145); VALPROIC ACID (DEPAKENE) 86.2 ug/ml (50-100)
[2018-11-06 09:24] LABS: TROPONIN I < 0.015 ng/ml (<0.045)
--- NOTE | 2018-11-06 11:27 | NUR ---
ATTEMPTED TO CALL STAFF TO BRING PATIENT UP TO THE FLOOR AND WAS DENIED TO BRING THE PATIENT TO THE FLOOR FOR ADMISSION BECAUSE THEY ARE NOT ACCEPTING ADMISSIONS BECAUSE THEY HAVENT DONE ANY DISCHARGES ON THE FLOOR. STATES THAT THIS IS THE DECISION OF LAVERNE. [facility] WILL CALL WHEN THEY ARE READY.
--- NOTE | 2018-11-06 11:42 | NUR ---
PATIENT CALL LIGHT ACTIVATED. PATIENT WANTS TO KNOW WHEN SHE IS GOING TO THE FLOOR. EXPLAINED TO HER THAT THEY ARE NOT ACCEPTING PATIENTS AT THIS TIME. PATIENT VERBALIZED HER UNSATIFACTION ALONG WITH THE FAMILY. STATES THAT THEY HAVE BEEN HERE FOR 3 HOURS ALREASY.
--- NOTE | 2018-11-06 11:53 | NUR ---
FITTER ARMAMENT [facility] CALLED AND PATIENT IS GOING TO 4TH FLOOR AT THIS TIME.
--- NOTE | 2018-11-06 11:56 | NUR ---
CALL TO NICOLE. MULTANI FOR THE PATIENT TO BE BROUGHT TO THE FLOOR.
[2018-11-06 12:00] VITALS: BP 152/76
--- NOTE | 2018-11-06 12:20 | NUR ---
Time: 1220 A 78 year old FEMALE admitted to under services of CHARLES BROWER DO. Pt. arrived via bed from ER. Chief complaint: ANXIETY, INCREASE ABD PAIN. GATITO ROLON
[2018-11-06] MEDS ORDERED: ATACAND PO (12:25)
[2018-11-06] MEDS ORDERED: DEPAKOTE250 MG PO (12:26)
--- NOTE | 2018-11-06 12:28 | NUR ---
VERIFIED HOME MEDICATIONS WITH DAUGHTER @ HOME.
--- NOTE | 2018-11-06 15:46 | NUR ---
PT COMPLAINING OF PAIN SURROUND RECTUM AND NAUSEA. MEDICATED WITH TYLENOL AND ZOFRAN. WILL MONITOR FOR EFFECTIVENESS.
[2018-11-06 16:00] VITALS: BP 172/88; BP 199/89
--- NOTE | 2018-11-06 17:36 | NUR ---
MEDICATED WITH MIRALAX FOR CONSTIPATION. WILL MONITOR FOR EFFECTIVENESS.
[2018-11-06 20:00] VITALS: BP 160/96
--- NOTE | 2018-11-06 22:20 | NUR ---
SPOKE WITH DR. GARCIA FOR PT COMPLAINT OF REDDENED AND IRRITATED SKIN IN THE GROIN AREA. ORDERS RECEIVED
--- NOTE | 2018-11-07 00:30 | NUR ---
BARKLEY WAS PLACED ON ADMISSION, BUT NO ORDER WAS IN. CATHETER CPOE ADDED PER PROTOCOL.
--- NOTE | 2018-11-07 01:30 | NUR ---
PATIENT PULLED OUT IV UPON WAKING UP AND BEING DISORIENTED. NEW IV STARTED IN RIGHT ARM AND WRAPPED TO KEEP SECURE.
[2018-11-07 08:00] LABS: BASO % 0.4 % (0.0-1.0); EOS # 0.1 10*3/uL (0.0-0.4); EOS % 0.7 % (1.0-4.0); HEMATOCRIT 40.1 % (37.0-47.0); LYMPH # 1.9 10*3/uL (1.3-4.4); LYMPH % 20.9 % (27.0-41.0); MEAN CELL VOLUME 81.7 fl (81.0-99.0); MEAN CORPUSCULAR HGB 24.4 pg (27.0-31.0); MEAN CORPUSCULAR HGB CONC 29.9 g/dl (33.0-37.0); MEAN PLATELET VOLUME 8.8 fl (9.6-12.3); MONO # 0.6 10*3/uL (0.1-1.0); MONO % 6.9 % (3.0-9.0); NEUT # 6.3 10*3/uL (2.3-7.9); NEUT % 70.7 % (47.0-73.0); PLATELET COUNT AUTOMATED 283 10*3/uL (130-400); RED BLOOD COUNT 4.91 10*6/uL (4.10-5.10); RED CELL DISTRI WIDTH 17.8 % (0-14.5); WHITE BLOOD COUNT 8.9 10*3/uL (4.8-10.8)
[2018-11-07 08:20] LABS: ALBUMIN 3.2 gm/dl (3.1-4.5); ALKALINE PHOSPHATASE 66 U/L (45-117); BUN 12 mg/dl (7-24); CHLORIDE 105 mmol/L (98-107); CREATININE 0.65 mg/dL (0.55-1.02); PHOSPHOROUS 1.9 mg/dL (2.5-4.9); POTASSIUM 3.5 mmol/L (3.5-5.1); SGOT/AST 6 IU/L (3-35); SGPT/ALT 10 U/L (12-78); SODIUM 140 mmol/L (136-145); TOTAL PROTEIN 6.6 gm/dL (6.4-8.2)
[2018-11-07 12:00] VITALS: BP 176/88
[2018-11-07 16:00] VITALS: BP 171/91
--- NOTE | 2018-11-07 17:23 | NUR ---
DR KING CONTACTED REGARDING THE WORSENING OF REDDENED AND PAINFUL AREA ON PATIENTS ARM WHERE PREVIOUS IV SITE WAS LOCATED.
[2018-11-07 20:00] VITALS: BP 152/80
[2018-11-08] VITALS: BP 148/82
--- NOTE | 2018-11-08 01:58 | NUR ---
PATIENT RESTING IN BED WITH EYES CLOSED. RESPS EASY AND REGULAR. BED IN LOWEST POSITION, BED ALARM ON, CALL LIGHT IN REACH
[2018-11-08 08:15] VITALS: BP 160/74
[2018-11-08] MEDS ORDERED: MIRALAX POWDER17 G1 PO (10:29)
[2018-11-08] MEDS ORDERED: VITAMIN D5000 UNI1 PO (10:29)
[2018-11-08] MEDS ORDERED: DOXYCYCLINE MO100 M1 PO (10:29)
--- NOTE | 2018-11-08 11:00 | NUR ---
PHYSICAL THERAPY ATTEMPTED TO SEE PATIENT TODAY AND FAMILY PRESENT STATING THEY DO NOT WANT ANY PT INTERVENTION SHE IS BEDFAST AT HOME AND THEY DO NOT WANT OR NEED ANY PT. THANK YOU FOR REFERRAL JAYMIE PEDRAZA PT
--- NOTE | 2018-11-08 14:41 | NUR ---
Discharge instructions reviewed with patient/family. Patient receptive and verbalizes understanding. Follow-up care arranged. Written instructions given to patient/family. MARIIA CHILEL
--- NOTE | 2018-11-09 09:21 | NUR ---
PHYSICAL THERAPY Nursing screen received and chart reviewed. Physical therapy order received. Patient discharged 11/08/18. Thank you. Jessica Florentino,PT,DPT
== END 2018-11-08 14:51 | disposition home or self-care (01) | DRG 389 ==
LOC: ED → EDBD 08:44 → ED 08:44 → EDHOLD 11:00 → 5E 11:07 → 4E 11:54
PROVIDERS: Emergency Medicine; Student in an Organized Health Care Education/Training Program; ADMIT Internal Medicine
DX: K56.41 Fecal impaction (principal); I50.32 Chronic diastolic (congestive) heart failure; I13.0 Hypertensive heart and chronic kidney disease with heart failure and stage 1 through stage 4 chronic kidney disease, or unspecified chronic kidney disease; N13.2 Hydronephrosis with renal and ureteral calculous obstruction; L03.114 Cellulitis of left upper limb; R53.1 Weakness; R10.30 Lower abdominal pain, unspecified; I25.10 Atherosclerotic heart disease of native coronary artery without angina pectoris; N18.3 Chronic kidney disease, stage 3 (moderate); G89.29 Other chronic pain; M54.5 Low back pain; E78.5 Hyperlipidemia, unspecified; G30.9 Alzheimer's disease, unspecified; F02.80 Dementia in other diseases classified elsewhere, unspecified severity, without behavioral disturbance, psychotic disturbance, mood disturbance, and anxiety; E83.39 Other disorders of phosphorus metabolism; E11.22 Type 2 diabetes mellitus with diabetic chronic kidney disease; Z74.01 Bed confinement status; Z86.73 Personal history of transient ischemic attack (TIA), and cerebral infarction without residual deficits; I25.2 Old myocardial infarction; Z95.5 Presence of coronary angioplasty implant and graft; Z88.8 Allergy status to other drugs, medicaments and biological substances; Z91.041 Radiographic dye allergy status; Z79.899 Other long term (current) drug therapy; Z79.52 Long term (current) use of systemic steroids